=== PATIENT | male | born 1980 | race Two or more races ===

== ENCOUNTER 2018-03-20 03:16 | Emergency (ER) | payer OTHER ==
[2018-03-20 03:44] LABS: ADD MAN DIFF? NO
[2018-03-20 04:06] LABS: ALANINE AMINOTRANSFERASE 31 IU/L (13-69); ALBUMIN 4.2 g/dl (3.3-4.9); ALBUMIN/GLOBULIN RATIO 1.55; ALKALINE PHOSPHATASE 100 IU/L (42-121); ANION GAP 16 (5-13); ASPARTATE AMINO TRANSFERASE 29 IU/L (15-46); BILIRUBIN,INDIRECT 0.4 mg/dl (0-1.1); BILIRUBIN,TOTAL 0.4 mg/dl (0.2-1.3); BLOOD UREA NITROGEN 50 mg/dl (7-20); CALCIUM 9.3 mg/dl (8.4-10.2); CARBON DIOXIDE 23 mmol/L (21-31); CHLORIDE 100 mmol/L (97-110); CREATININE 11.42 mg/dl (0.61-1.24); Estimated GFR 5 mL/min (>60); GLUCOSE 101 mg/dl (70-220); POTASSIUM 4.2 mmol/L (3.5-5.1); SODIUM 139 mmol/L (135-144); TOTAL PROTEIN 6.9 g/dl (6.1-8.1)
[2018-03-20 04:09] LABS: BASOPHILS % 0.5 % (0.0-2.0); EOSINOPHILS # 0.2 10^3/ul (0.0-0.5); EOSINOPHILS % 3.8 % (0.0-7.0); HEMATOCRIT 31.3 % (42.0-52.0); HEMOGLOBIN 10.5 g/dl (14.0-18.0); LYMPHOCYTES # 1.7 10^3/ul (0.8-2.9); LYMPHOCYTES % 26.4 % (15.0-51.0); MEAN CORPUSCULAR HEMOGLOBIN 30.4 pg (29.0-33.0); MEAN CORPUSCULAR HGB CONC 33.5 g/dl (32.0-37.0); MEAN CORPUSCULAR VOLUME 90.7 fl (82.0-101.0); MEAN PLATELET VOLUME 9.6 fl (7.4-10.4); MONOCYTE # 0.4 10^3/ul (0.3-0.9); NEUTROPHILS % 63.1 % (39.0-77.0); PLATELET COUNT 145 10^3/UL (140-415); RED BLOOD COUNT 3.45 10^6/ul (4.70-6.10); RED CELL DISTRIBUTION WIDTH 17.1 % (11.5-14.5)
[2018-03-20 04:09] LABS: WHITE BLOOD COUNT 6.3 10^3/ul (4.8-10.8)
[2018-03-20 04:17] LABS: INR 0.93; PROTIME 12.5 Sec (11.9-14.9)
[2018-03-20 04:18] LABS: PARTIAL THROMBOPLASTIN TIME 28.6 Sec (23.0-35.0); TROPONIN-I 0.091 ng/ml (0.000-0.120)
[2018-03-20] MEDS: NITROGLYCERIN 2% 1 GM OINT PKT TD (04:22)
[2018-03-20 04:46] LABS: B-TYPE NATRIURETIC PEPTIDE 143000 PG/ML (0-125)
[2018-03-20 04:48] LABS: AADO2 Arterial 211.8 mmHg (7.0-24.0); Arterial Base Excess -3.2 mmol/L (-3.0-3); Arterial Blood Gas Oxygen Sat 97.2 mmHG (95.0-98.0); Arterial COHb 1.6 % (0.0-3.0); Arterial Fraction of Oxyhgb 95.6 % (93.0-99.0); Arterial HCO3 21.1 mmol/L (22.0-26.0); Arterial MetHb 0 % (0.0-1.5); Blood Gas IEPAP 15/5; Blood Gas PS 10; MODE MASK - BIPAP; Site LB
== END 2018-03-20 10:39 | disposition left against medical advice (07) ==
LOC: E/R 03:16
DX: R06.02 Shortness of breath (principal); I10 Essential (primary) hypertension; F17.210 Nicotine dependence, cigarettes, uncomplicated
CPT/HCPCS: 36415; 36600; 71045; 80053; 82803; 83605; 83880; 84484; 85025; 85610; 85730; 93005; 94660; 99285-25

== ENCOUNTER 2018-03-22 04:32 | Emergency (ER) | payer OTHER ==
[2018-03-22 05:27] LABS: ADD MAN DIFF? NO
[2018-03-22 05:35] LABS: WHITE BLOOD COUNT 6.1 10^3/ul (4.8-10.8)
[2018-03-22 05:35] LABS: BASOPHILS % 0.5 % (0.0-2.0); EOSINOPHILS # 0.2 10^3/ul (0.0-0.5); EOSINOPHILS % 3.8 % (0.0-7.0); HEMATOCRIT 30.7 % (42.0-52.0); HEMOGLOBIN 10.2 g/dl (14.0-18.0); LYMPHOCYTES # 1.2 10^3/ul (0.8-2.9); MEAN CORPUSCULAR HEMOGLOBIN 30.3 pg (29.0-33.0); MEAN CORPUSCULAR HGB CONC 33.2 g/dl (32.0-37.0); MEAN CORPUSCULAR VOLUME 91.1 fl (82.0-101.0); MEAN PLATELET VOLUME 9.7 fl (7.4-10.4); MONOCYTE # 0.4 10^3/ul (0.3-0.9); MONOCYTES % 6.3 % (0.0-11.0); NEUTROPHIL # 4.2 10^3/ul (1.6-7.5); NEUTROPHILS % 69.1 % (39.0-77.0); PLATELET COUNT 134 10^3/UL (140-415); RED BLOOD COUNT 3.37 10^6/ul (4.70-6.10); RED CELL DISTRIBUTION WIDTH 17.5 % (11.5-14.5)
[2018-03-22 05:51] LABS: INR 0.93; PROTIME 12.6 Sec (11.9-14.9)
[2018-03-22] MEDS: LABETALOL HCL 20MG INJ IV (06:08)
[2018-03-22 06:13] LABS: ANION GAP 17 (5-13); BLOOD UREA NITROGEN 53 mg/dl (7-20); CALCIUM 9.4 mg/dl (8.4-10.2); CARBON DIOXIDE 25 mmol/L (21-31); CHLORIDE 100 mmol/L (97-110); CREATININE 11.28 mg/dl (0.61-1.24); Estimated GFR 5 mL/min (>60); GLUCOSE 99 mg/dl (70-220); SODIUM 142 mmol/L (135-144)
[2018-03-22 06:24] LABS: TROPONIN-I 0.079 ng/ml (0.000-0.120)
[2018-03-22 07:52] LABS: B-TYPE NATRIURETIC PEPTIDE 162000 PG/ML (0-125)
== END 2018-03-22 07:46 | disposition left against medical advice (07) ==
LOC: E/R 04:32
DX: J81.1 Chronic pulmonary edema (principal); I12.0 Hypertensive chronic kidney disease with stage 5 chronic kidney disease or end stage renal disease; N18.6 End stage renal disease; R00.0 Tachycardia, unspecified; R06.82 Tachypnea, not elsewhere classified; D64.9 Anemia, unspecified; F17.210 Nicotine dependence, cigarettes, uncomplicated; Z99.2 Dependence on renal dialysis
CPT/HCPCS: 36415; 71045; 80048; 83880; 84484; 85025; 85610; 93005; 96374; 99285-25

== ENCOUNTER 2018-05-10 19:55 | Inpatient (IN) | payer OTHER ==
[2018-05-10 21:20] LABS: ADD MAN DIFF? NO
[2018-05-10 21:23] LABS: BASOPHILS % 0.3 % (0.0-2.0); EOSINOPHILS # 0.1 10^3/ul (0.0-0.5); EOSINOPHILS % 1.9 % (0.0-7.0); HEMATOCRIT 29.9 % (42.0-52.0); HEMOGLOBIN 9.6 g/dl (14.0-18.0); LYMPHOCYTES # 1.4 10^3/ul (0.8-2.9); MEAN CORPUSCULAR HEMOGLOBIN 31.3 pg (29.0-33.0); MEAN CORPUSCULAR HGB CONC 32.1 g/dl (32.0-37.0); MEAN CORPUSCULAR VOLUME 97.4 fl (82.0-101.0); MEAN PLATELET VOLUME 10.3 fl (7.4-10.4); MONOCYTE # 0.4 10^3/ul (0.3-0.9); MONOCYTES % 6.1 % (0.0-11.0); NEUTROPHIL # 4.3 10^3/ul (1.6-7.5); NEUTROPHILS % 68.4 % (39.0-77.0); PLATELET COUNT 198 10^3/UL (140-415); RED BLOOD COUNT 3.07 10^6/ul (4.70-6.10); RED CELL DISTRIBUTION WIDTH 15.8 % (11.5-14.5)
[2018-05-10 21:23] LABS: WHITE BLOOD COUNT 6.2 10^3/ul (4.8-10.8)
[2018-05-10 21:29] LABS: ALANINE AMINOTRANSFERASE 47 IU/L (13-69); ALBUMIN 3.9 g/dl (3.3-4.9); ALBUMIN/GLOBULIN RATIO 1.44; ALKALINE PHOSPHATASE 82 IU/L (42-121); ANION GAP 13 (5-13); ASPARTATE AMINO TRANSFERASE 29 IU/L (15-46); BILIRUBIN,INDIRECT 0.2 mg/dl (0-1.1); BILIRUBIN,TOTAL 0.2 mg/dl (0.2-1.3); BLOOD UREA NITROGEN 57 mg/dl (7-20); CALCIUM 9.4 mg/dl (8.4-10.2); CARBON DIOXIDE 23 mmol/L (21-31); CHLORIDE 104 mmol/L (97-110); CREATININE 10.97 mg/dl (0.61-1.24); Estimated GFR 5 mL/min (>60); GLUCOSE 102 mg/dl (70-220); LIPASE 109 U/L (23-300); POTASSIUM 3.5 mmol/L (3.5-5.1); SODIUM 140 mmol/L (135-144); TOTAL PROTEIN 6.6 g/dl (6.1-8.1)
[2018-05-10] MEDS ORDERED: ENALAPRILAT 1.25 MG INJ IV (21:30)
[2018-05-10] MEDS: ENALAPRILAT 2.5 MG INJ IV (21:50)
[2018-05-10 22:05] LABS: TROPONIN-I 0.154 ng/ml (0.000-0.120)
[2018-05-10] MEDS: ASPIRIN 81 MG TAB PO (22:48)
[2018-05-11] MEDS ORDERED: ACETAMINOPHEN 325 MG TAB PO
[2018-05-11] MEDS: SEVELAMER CARBONATE 0.8 GM PKT PO ×3 (08:00→17:38)
[2018-05-11] MEDS ORDERED: LOSARTAN 25 MG TAB PO (09:00)
[2018-05-11] MEDS ORDERED: AMLODIPINE 5 MG TAB PO (09:00)
[2018-05-11 09:48] LABS: CREATINE KINASE 106 IU/L (23-200)
[2018-05-11 10:01] LABS: CK INDEX 2.9; TROPONIN-I 0.118 ng/ml (0.000-0.120)
[2018-05-11 10:02] LABS: CK-MB 3.06 ng/ml (0.0-2.4)
[2018-05-11 10:20] LABS: HEPATITIS B SURFACE ANTIGEN NEGATIVE (NEGATIVE)
[2018-05-11] MEDS: HEPARIN 1000 UNITS/ML 10 ML INJ CATHETER (12:18)
[2018-05-11] MEDS: FAMOTIDINE 20 MG TAB PO ×2 (13:05→21:00)
[2018-05-11] MEDS: DIGOXIN 500 MCG INJ IV (13:08)
[2018-05-11] MEDS: HEPARIN 5,000 UNIT/1 ML VIAL SC ×2 (13:19→21:40)
[2018-05-11] MEDS: EPOETIN 10000 UNITS/1 ML INJ (ESRD) SC (17:37)
[2018-05-11] MEDS: LOSARTAN 25 MG TAB PO (21:35)
[2018-05-12 06:17] LABS: ADD MAN DIFF? NO
[2018-05-12 06:19] LABS: BASOPHILS % 0.5 % (0.0-2.0); EOSINOPHILS # 0.2 10^3/ul (0.0-0.5); EOSINOPHILS % 3.8 % (0.0-7.0); HEMATOCRIT 26.6 % (42.0-52.0); HEMOGLOBIN 8.6 g/dl (14.0-18.0); LYMPHOCYTES # 0.9 10^3/ul (0.8-2.9); LYMPHOCYTES % 22.6 % (15.0-51.0); MEAN CORPUSCULAR HEMOGLOBIN 31.5 pg (29.0-33.0); MEAN CORPUSCULAR HGB CONC 32.3 g/dl (32.0-37.0); MEAN CORPUSCULAR VOLUME 97.4 fl (82.0-101.0); MEAN PLATELET VOLUME 10.4 fl (7.4-10.4); MONOCYTE # 0.4 10^3/ul (0.3-0.9); MONOCYTES % 8.8 % (0.0-11.0); NEUTROPHIL # 2.6 10^3/ul (1.6-7.5); PLATELET COUNT 143 10^3/UL (140-415); RED BLOOD COUNT 2.73 10^6/ul (4.70-6.10); RED CELL DISTRIBUTION WIDTH 15.5 % (11.5-14.5)
[2018-05-12 06:48] LABS: ANION GAP 14 (5-13); BLOOD UREA NITROGEN 53 mg/dl (7-20); CALCIUM 8.7 mg/dl (8.4-10.2); CARBON DIOXIDE 24 mmol/L (21-31); CHLORIDE 100 mmol/L (97-110); CREATININE 9.62 mg/dl (0.61-1.24); Estimated GFR 6 mL/min (>60); GLUCOSE 113 mg/dl (70-220); MAGNESIUM 2.2 mg/dl (1.7-2.5); PHOSPHORUS 7.6 mg/dl (2.5-4.9); POTASSIUM 3.3 mmol/L (3.5-5.1); SODIUM 138 mmol/L (135-144)
[2018-05-12] MEDS: SEVELAMER CARBONATE 0.8 GM PKT PO ×2 (08:00→12:00)
[2018-05-12] MEDS: HEPARIN 1000 UNITS/ML 10 ML INJ CATHETER (11:49)
[2018-05-12] MEDS: HEPARIN 5,000 UNIT/1 ML VIAL SC (12:30)
[2018-05-12] MEDS: FAMOTIDINE 20 MG TAB PO (12:30)
[2018-05-12] MEDS: ASPIRIN (EC) 81 MG TAB PO (12:30)
[2018-05-12] MEDS: LOSARTAN 25 MG TAB PO (12:30)
== END 2018-05-12 12:43 | disposition home health service (06) | DRG 291 ==
LOC: E/R 19:55 → 6WM 23:51
PROC: 5A09357 Assistance with Respiratory Ventilation, Less than 24 Consecutive Hours, Continuous Positive Airway Pressure (ICD-10-PCS; 2018-05-10)
PROC: 5A1D70Z Performance of Urinary Filtration, Intermittent, Less than 6 Hours Per Day (ICD-10-PCS; principal; 2018-05-11)
DX: I13.2 Hypertensive heart and chronic kidney disease with heart failure and with stage 5 chronic kidney disease, or end stage renal disease (principal); J96.01 Acute respiratory failure with hypoxia; N18.6 End stage renal disease; I50.23 Acute on chronic systolic (congestive) heart failure; J96.02 Acute respiratory failure with hypercapnia; I42.9 Cardiomyopathy, unspecified; D63.1 Anemia in chronic kidney disease; Z99.2 Dependence on renal dialysis; F17.210 Nicotine dependence, cigarettes, uncomplicated
CPT/HCPCS: 36415; 71045; 76775; 80048; 80053; 82550; 82553; 83690; 83735; 84100; 84484; 85025; 87340; 90935; 93306; 94660; 99291-25

== ENCOUNTER 2018-05-21 17:58 | Inpatient (IN) | payer OTHER ==
[2018-05-21 19:56] LABS: ADD MAN DIFF? NO
[2018-05-21 20:15] LABS: WHITE BLOOD COUNT 5.9 10^3/ul (4.8-10.8)
[2018-05-21 20:15] LABS: BASOPHILS % 0.3 % (0.0-2.0); EOSINOPHILS # 0.1 10^3/ul (0.0-0.5); HEMATOCRIT 27.8 % (42.0-52.0); HEMOGLOBIN 8.9 g/dl (14.0-18.0); LYMPHOCYTES # 1.2 10^3/ul (0.8-2.9); LYMPHOCYTES % 20.7 % (15.0-51.0); MEAN CORPUSCULAR HEMOGLOBIN 31.1 pg (29.0-33.0); MEAN CORPUSCULAR VOLUME 97.2 fl (82.0-101.0); MEAN PLATELET VOLUME 10.4 fl (7.4-10.4); MONOCYTE # 0.2 10^3/ul (0.3-0.9); MONOCYTES % 3.6 % (0.0-11.0); NEUTROPHIL # 4.3 10^3/ul (1.6-7.5); NEUTROPHILS % 72.9 % (39.0-77.0); PLATELET COUNT 179 10^3/UL (140-415); RED BLOOD COUNT 2.86 10^6/ul (4.70-6.10); RED CELL DISTRIBUTION WIDTH 14.3 % (11.5-14.5)
[2018-05-21 20:21] LABS: INR 1.01; PROTIME 13.4 Sec (11.9-14.9)
[2018-05-21 20:22] LABS: PARTIAL THROMBOPLASTIN TIME 28.6 Sec (23.0-35.0)
[2018-05-21] MEDS: NITROGLYCERIN (SL) 0.4 MG TAB SL (20:25)
[2018-05-21 20:29] LABS: CHLORIDE 95 mmol/L (97-110); POTASSIUM 4.1 mmol/L (3.5-5.1); SODIUM 139 mmol/L (135-144)
[2018-05-21 20:30] LABS: ANION GAP 19 (5-13); BLOOD UREA NITROGEN 68 mg/dl (7-20); CALCIUM 9.4 mg/dl (8.4-10.2); CARBON DIOXIDE 25 mmol/L (21-31); CREATININE 10.81 mg/dl (0.61-1.24); Estimated GFR 5 mL/min (>60); GLUCOSE 99 mg/dl (70-220)
[2018-05-21 20:45] LABS: TROPONIN-I 0.127 ng/ml (0.000-0.120)
[2018-05-21] MEDS: ASPIRIN 81 MG TAB PO (20:50)
[2018-05-21] MEDS ORDERED: ACETAMINOPHEN 325 MG TAB PO ×2 (21:00→22:00)
[2018-05-21] MEDS ORDERED: ONDANSETRON 4 MG INJ IV ×2 (21:00→22:00)
[2018-05-21] MEDS ORDERED: hydrALAzine 20 MG INJ (21:37)
[2018-05-21] MEDS: hydrALAzine 20 MG INJ IV (21:51)
[2018-05-21] MEDS ORDERED: ZOLPIDEM 5 MG TAB PO (22:00)
[2018-05-21] MEDS ORDERED: NACL 0.9% 3 ML SYG IV (22:00)
[2018-05-21] MEDS ORDERED: GUAIFENESIN/DM 5ML CUP PO (23:00)
[2018-05-21] MEDS: HEPARIN 5,000 UNIT/1 ML VIAL SC (23:03)
[2018-05-21] MEDS: NITROGLYCERIN 2% 1 GM OINT PKT TD (23:15)
[2018-05-22 03:01] LABS: ADD MAN DIFF? NO
[2018-05-22 03:05] LABS: BASOPHILS % 0.4 % (0.0-2.0); EOSINOPHILS # 0.1 10^3/ul (0.0-0.5); EOSINOPHILS % 1.2 % (0.0-7.0); HEMATOCRIT 25.6 % (42.0-52.0); HEMOGLOBIN 8.3 g/dl (14.0-18.0); LYMPHOCYTES # 0.8 10^3/ul (0.8-2.9); MEAN CORPUSCULAR HGB CONC 32.4 g/dl (32.0-37.0); MEAN CORPUSCULAR VOLUME 95.5 fl (82.0-101.0); MEAN PLATELET VOLUME 10.5 fl (7.4-10.4); MONOCYTE # 0.2 10^3/ul (0.3-0.9); MONOCYTES % 4.5 % (0.0-11.0); NEUTROPHILS % 77.5 % (39.0-77.0); PLATELET COUNT 162 10^3/UL (140-415); RED BLOOD COUNT 2.68 10^6/ul (4.70-6.10); RED CELL DISTRIBUTION WIDTH 14.6 % (11.5-14.5)
[2018-05-22 03:05] LABS: WHITE BLOOD COUNT 5.1 10^3/ul (4.8-10.8)
[2018-05-22 03:40] LABS: ALANINE AMINOTRANSFERASE 36 IU/L (13-69); ALBUMIN 3.5 g/dl (3.3-4.9); ALKALINE PHOSPHATASE 83 IU/L (42-121); ANION GAP 14 (5-13); ASPARTATE AMINO TRANSFERASE 24 IU/L (15-46); BILIRUBIN,INDIRECT 0.4 mg/dl (0-1.1); BILIRUBIN,TOTAL 0.4 mg/dl (0.2-1.3); BLOOD UREA NITROGEN 73 mg/dl (7-20); CALCIUM 9.3 mg/dl (8.4-10.2); CARBON DIOXIDE 23 mmol/L (21-31); CHLORIDE 102 mmol/L (97-110); CREATINE KINASE 163 IU/L (23-200); CREATININE 11.18 mg/dl (0.61-1.24); Estimated GFR 5 mL/min (>60); GLUCOSE 102 mg/dl (70-220); MAGNESIUM 2.5 mg/dl (1.7-2.5); PHOSPHORUS 5.9 mg/dl (2.5-4.9); POTASSIUM 4.2 mmol/L (3.5-5.1); SODIUM 139 mmol/L (135-144)
[2018-05-22 03:51] LABS: CK INDEX 2.6
[2018-05-22 03:52] LABS: CK-MB 4.17 ng/ml (0.0-2.4)
[2018-05-22 04:12] LABS: HEPATITIS B SURFACE ANTIGEN NEGATIVE (NEGATIVE)
[2018-05-22] MEDS: NITROGLYCERIN 2% 1 GM OINT PKT TD ×4 (05:32→23:13)
[2018-05-22] MEDS: HEPARIN 5,000 UNIT/1 ML VIAL SC ×3 (05:39→21:52)
[2018-05-22 07:51] LABS: TROPONIN-I 0.104 ng/ml (0.000-0.120)
[2018-05-22] MEDS: SEVELAMER CARBONATE 0.8 GM PKT PO ×3 (08:18→17:55)
[2018-05-22] MEDS: EPOETIN 10000 UNITS/1 ML INJ (ESRD) SC (11:17)
[2018-05-22] MEDS: LISINOPRIL 5 MG TAB PO (11:19)
[2018-05-22 12:06] LABS: CREATINE KINASE 174 IU/L (23-200)
[2018-05-22 12:16] LABS: CK INDEX 2.1; TROPONIN-I 0.104 ng/ml (0.000-0.120)
[2018-05-22 12:33] LABS: CK-MB 3.62 ng/ml (0.0-2.4)
[2018-05-22] MEDS: ALTEPLASE (CATHFLO) 2 MG INJ CATHETER (15:22)
[2018-05-23] MEDS: NITROGLYCERIN 2% 1 GM OINT PKT TD ×3 (05:52→17:40)
[2018-05-23 05:56] LABS: ADD MAN DIFF? NO
[2018-05-23] MEDS: HEPARIN 5,000 UNIT/1 ML VIAL SC ×3 (06:07→21:04)
[2018-05-23 06:08] LABS: BASOPHILS % 0.5 % (0.0-2.0); EOSINOPHILS # 0.1 10^3/ul (0.0-0.5); EOSINOPHILS % 2.6 % (0.0-7.0); HEMATOCRIT 24.7 % (42.0-52.0); HEMOGLOBIN 8.1 g/dl (14.0-18.0); LYMPHOCYTES # 0.8 10^3/ul (0.8-2.9); LYMPHOCYTES % 19.2 % (15.0-51.0); MEAN CORPUSCULAR HEMOGLOBIN 31.3 pg (29.0-33.0); MEAN CORPUSCULAR HGB CONC 32.8 g/dl (32.0-37.0); MEAN CORPUSCULAR VOLUME 95.4 fl (82.0-101.0); MONOCYTE # 0.3 10^3/ul (0.3-0.9); MONOCYTES % 7.3 % (0.0-11.0); NEUTROPHILS % 70.2 % (39.0-77.0); PLATELET COUNT 135 10^3/UL (140-415); RED BLOOD COUNT 2.59 10^6/ul (4.70-6.10); RED CELL DISTRIBUTION WIDTH 14.5 % (11.5-14.5)
[2018-05-23 06:08] LABS: WHITE BLOOD COUNT 4.3 10^3/ul (4.8-10.8)
[2018-05-23 06:43] LABS: ANION GAP 18 (5-13); BLOOD UREA NITROGEN 58 mg/dl (7-20); CALCIUM 8.8 mg/dl (8.4-10.2); CARBON DIOXIDE 27 mmol/L (21-31); CHLORIDE 94 mmol/L (97-110); CREATININE 9.66 mg/dl (0.61-1.24); Estimated GFR 6 mL/min (>60); GLUCOSE 91 mg/dl (70-220); MAGNESIUM 2.2 mg/dl (1.7-2.5); POTASSIUM 3.8 mmol/L (3.5-5.1); SODIUM 139 mmol/L (135-144)
[2018-05-23] MEDS: SEVELAMER CARBONATE 0.8 GM PKT PO ×3 (07:55→17:39)
[2018-05-23] MEDS: LISINOPRIL 5 MG TAB PO (09:00)
[2018-05-23] MEDS: ASPIRIN (EC) 81 MG TAB PO (09:00)
[2018-05-23] MEDS: REGADENOSON 0.4 MG/5 ML SYG (09:08)
[2018-05-23] MEDS: HEPARIN 1000 UNITS/ML 10 ML INJ CATHETER (16:16)
[2018-05-24] MEDS: NITROGLYCERIN 2% 1 GM OINT PKT TD ×2 (00:16→06:00)
[2018-05-24] MEDS: HEPARIN 5,000 UNIT/1 ML VIAL SC ×2 (06:00→14:00)
[2018-05-24] MEDS ORDERED: EPOETIN 10000 UNITS/1 ML INJ (ESRD) SC (08:30)
[2018-05-24] MEDS: ASPIRIN (EC) 81 MG TAB PO (08:40)
[2018-05-24] MEDS: SEVELAMER CARBONATE 800 MG TABLET PO ×3 (08:40→17:55)
[2018-05-24] MEDS: LISINOPRIL 5 MG TAB PO (08:41)
[2018-05-24] MEDS: HEPARIN 1000 UNITS/ML 10 ML INJ CATHETER (18:57)
[2018-05-24] MEDS: VANCOMYCIN 1 GM (PMX) 250 ML IVPB (19:04)
[2018-05-24] MEDS: CEPHALEXIN 500 MG CAP PO (19:56)
[2018-05-24] MEDS: EPOETIN 10000 UNITS/1 ML INJ (ESRD) SC (19:57)
== END 2018-05-24 20:05 | disposition home or self-care (01) | DRG 291 ==
LOC: E/R 17:58 → TEL 20:32
PROC: 5A1D70Z Performance of Urinary Filtration, Intermittent, Less than 6 Hours Per Day (ICD-10-PCS; 2018-05-21)
PROC: 5A1D70Z Performance of Urinary Filtration, Intermittent, Less than 6 Hours Per Day (ICD-10-PCS; 2018-05-23)
PROC: 5A1D70Z Performance of Urinary Filtration, Intermittent, Less than 6 Hours Per Day (ICD-10-PCS; principal; 2018-05-24)
DX: I13.2 Hypertensive heart and chronic kidney disease with heart failure and with stage 5 chronic kidney disease, or end stage renal disease (principal); N18.6 End stage renal disease; I50.23 Acute on chronic systolic (congestive) heart failure; J96.01 Acute respiratory failure with hypoxia; T82.7XXA Infection and inflammatory reaction due to other cardiac and vascular devices, implants and grafts, initial encounter; I16.1 Hypertensive emergency; F17.210 Nicotine dependence, cigarettes, uncomplicated; D64.9 Anemia, unspecified; I42.9 Cardiomyopathy, unspecified; Z79.82 Long term (current) use of aspirin; Z99.2 Dependence on renal dialysis; Z91.11 Patient's noncompliance with dietary regimen; Z91.14 Patient's other noncompliance with medication regimen; Y84.8 Other medical procedures as the cause of abnormal reaction of the patient, or of later complication, without mention of misadventure at the time of the procedure; Y92.230 Patient room in hospital as the place of occurrence of the external cause
CPT/HCPCS: 71045; 71046; 78452; 80048; 80053; 82550; 82553; 82962; 83036; 83735; 84100; 84443; 84484; 85025; 85610; 85730; 87340; 90935; 93005; 93017; 99285-25

== ENCOUNTER 2018-05-30 21:23 | Emergency (ER) | payer SELFPAY, OTHER | END 2018-05-31 00:19 | disposition left against medical advice (07) | LOC: E/R 21:23 | DX: Z53.21 Procedure and treatment not carried out due to patient leaving prior to being seen by health care provider (principal) | CPT/HCPCS: 93005 ==

== ENCOUNTER 2018-06-15 01:40 | Inpatient (IN) | payer OTHER ==
[2018-06-15 03:27] LABS: ADD MAN DIFF? NO
[2018-06-15 03:49] LABS: ALANINE AMINOTRANSFERASE 29 IU/L (13-69); ALBUMIN/GLOBULIN RATIO 1.33; ALKALINE PHOSPHATASE 96 IU/L (42-121); ANION GAP 19 (5-13); ASPARTATE AMINO TRANSFERASE 31 IU/L (15-46); BILIRUBIN,INDIRECT 0.3 mg/dl (0-1.1); BILIRUBIN,TOTAL 0.3 mg/dl (0.2-1.3); BLOOD UREA NITROGEN 61 mg/dl (7-20); CALCIUM 9.1 mg/dl (8.4-10.2); CARBON DIOXIDE 19 mmol/L (21-31); CHLORIDE 100 mmol/L (97-110); CREATININE 12.28 mg/dl (0.61-1.24); Estimated GFR 5 mL/min (>60); GLUCOSE 120 mg/dl (70-220); POTASSIUM 4.2 mmol/L (3.5-5.1); SODIUM 138 mmol/L (135-144)
[2018-06-15 04:01] LABS: TROPONIN-I 0.117 ng/ml (0.000-0.120)
[2018-06-15 04:11] LABS: WHITE BLOOD COUNT 7.9 10^3/ul (4.8-10.8)
[2018-06-15 04:11] LABS: BASOPHILS % 0.4 % (0.0-2.0); EOSINOPHILS # 0.1 10^3/ul (0.0-0.5); HEMOGLOBIN 9.8 g/dl (14.0-18.0); LYMPHOCYTES % 12.9 % (15.0-51.0); MEAN CORPUSCULAR HEMOGLOBIN 31.3 pg (29.0-33.0); MEAN CORPUSCULAR HGB CONC 32.7 g/dl (32.0-37.0); MEAN CORPUSCULAR VOLUME 95.8 fl (82.0-101.0); MEAN PLATELET VOLUME 9.9 fl (7.4-10.4); MONOCYTE # 0.4 10^3/ul (0.3-0.9); MONOCYTES % 4.5 % (0.0-11.0); NEUTROPHIL # 6.4 10^3/ul (1.6-7.5); NEUTROPHILS % 80.9 % (39.0-77.0); PLATELET COUNT 189 10^3/UL (140-415); RED BLOOD COUNT 3.13 10^6/ul (4.70-6.10); RED CELL DISTRIBUTION WIDTH 15.7 % (11.5-14.5)
[2018-06-15] MEDS: hydrALAzine 20 MG INJ IV (04:22)
[2018-06-15] MEDS: NICARDipine HCL 30 MG CAPSULE PO (04:22)
[2018-06-15] MEDS ORDERED: ACETAMINOPHEN 325 MG TAB PO (06:00)
[2018-06-15] MEDS ORDERED: ONDANSETRON 4 MG INJ IV (06:00)
[2018-06-15] MEDS: NIFEdipine (XL) 60 MG TAB PO ×2 (10:30→11:51)
[2018-06-15] MEDS: LOSARTAN 50 MG TAB PO ×2 (10:30→14:37)
[2018-06-15] MEDS: SEVELAMER CARBONATE 0.8 GM PKT PO (11:50)
[2018-06-15 12:17] LABS: HEPATITIS B SURFACE ANTIGEN NEGATIVE (NEGATIVE)
[2018-06-15] MEDS: HEPARIN 1000 UNITS/ML 10 ML INJ CATHETER (17:59)
[2018-06-15] MEDS: SEVELAMER CARBONATE 800 MG TABLET PO (18:00)
[2018-06-16] MEDS: SEVELAMER CARBONATE 800 MG TABLET PO ×3 (08:49→17:49)
[2018-06-16] MEDS: ASPIRIN (EC) 81 MG TAB PO (08:49)
[2018-06-16] MEDS: LOSARTAN 50 MG TAB PO ×2 (08:51→17:49)
[2018-06-16] MEDS: NIFEdipine (XL) 60 MG TAB PO ×3 (08:51→20:01)
[2018-06-16] MEDS: HEPARIN 1000 UNITS/ML 10 ML INJ CATHETER (17:36)
[2018-06-16] MEDS: MINOXIDIL 2.5 MG TAB PO (22:44)
[2018-06-17] MEDS: NIFEdipine (XL) 60 MG TAB PO (08:06)
[2018-06-17] MEDS: SEVELAMER CARBONATE 800 MG TABLET PO (08:06)
[2018-06-17] MEDS: LOSARTAN 50 MG TAB PO (08:07)
[2018-06-17] MEDS: ASPIRIN (EC) 81 MG TAB PO (08:07)
== END 2018-06-17 10:35 | disposition home health service (06) | DRG 291 ==
LOC: E/R 01:40 → TEL 05:39
PROC: 5A1D70Z Performance of Urinary Filtration, Intermittent, Less than 6 Hours Per Day (ICD-10-PCS; principal; 2018-06-15)
DX: I13.2 Hypertensive heart and chronic kidney disease with heart failure and with stage 5 chronic kidney disease, or end stage renal disease (principal); N18.6 End stage renal disease; I50.9 Heart failure, unspecified; Z99.2 Dependence on renal dialysis; D64.9 Anemia, unspecified; Z91.19 Patient's noncompliance with other medical treatment and regimen
CPT/HCPCS: 36415; 71045; 80053; 84484; 85025; 87081; 87340; 90935; 93005; 96374; 99285-25; G0378

== ENCOUNTER 2018-07-18 07:15 | Inpatient (IN) | payer OTHER ==
[2018-07-18 07:50] LABS: ADD MAN DIFF? NO
[2018-07-18 07:53] LABS: BASOPHILS % 0.4 % (0.0-2.0); EOSINOPHILS # 0.1 10^3/ul (0.0-0.5); EOSINOPHILS % 2.3 % (0.0-7.0); HEMATOCRIT 30.1 % (42.0-52.0); LYMPHOCYTES # 0.9 10^3/ul (0.8-2.9); LYMPHOCYTES % 18.8 % (15.0-51.0); MEAN CORPUSCULAR HEMOGLOBIN 31.9 pg (29.0-33.0); MEAN CORPUSCULAR HGB CONC 33.2 g/dl (32.0-37.0); MEAN CORPUSCULAR VOLUME 96.2 fl (82.0-101.0); MEAN PLATELET VOLUME 10.3 fl (7.4-10.4); MONOCYTE # 0.4 10^3/ul (0.3-0.9); MONOCYTES % 7.9 % (0.0-11.0); NEUTROPHIL # 3.3 10^3/ul (1.6-7.5); NEUTROPHILS % 70.2 % (39.0-77.0); PLATELET COUNT 130 10^3/UL (140-415); RED BLOOD COUNT 3.13 10^6/ul (4.70-6.10)
[2018-07-18 07:53] LABS: WHITE BLOOD COUNT 4.7 10^3/ul (4.8-10.8)
[2018-07-18] MEDS: NITROGLYCERIN 50 MG/D5W (PMX) 250 ML IV (07:59)
[2018-07-18 08:09] LABS: ALANINE AMINOTRANSFERASE 29 IU/L (13-69); ALBUMIN 4.1 g/dl (3.3-4.9); ALBUMIN/GLOBULIN RATIO 1.36; ALKALINE PHOSPHATASE 89 IU/L (42-121); ANION GAP 17 (5-13); ASPARTATE AMINO TRANSFERASE 19 IU/L (15-46); BILIRUBIN,INDIRECT 0.4 mg/dl (0-1.1); BILIRUBIN,TOTAL 0.4 mg/dl (0.2-1.3); BLOOD UREA NITROGEN 71 mg/dl (7-20); CALCIUM 9.4 mg/dl (8.4-10.2); CARBON DIOXIDE 23 mmol/L (21-31); CHLORIDE 101 mmol/L (97-110); CREATININE 12.97 mg/dl (0.61-1.24); Estimated GFR 4 mL/min (>60); GLUCOSE 105 mg/dl (70-220); SODIUM 141 mmol/L (135-144); TOTAL PROTEIN 7.1 g/dl (6.1-8.1)
[2018-07-18 08:12] LABS: INR 1.03; PROTIME 13.6 Sec (11.9-14.9); PT RATIO 1.1
[2018-07-18 08:15] LABS: LACTIC ACID 0.9 mmol/L (0.5-2.0)
[2018-07-18 08:21] LABS: TROPONIN-I 0.091 ng/ml (0.000-0.120)
[2018-07-18 09:53] LABS: B-TYPE NATRIURETIC PEPTIDE > 175000 PG/ML (0-125)
[2018-07-18] MEDS: SEVELAMER CARBONATE 0.8 GM PKT PO ×3 (11:38→18:32)
[2018-07-18] MEDS: LOSARTAN 50 MG TAB PO (12:09)
[2018-07-18] MEDS: ASPIRIN (EC) 81 MG TAB PO (12:09)
[2018-07-18] MEDS: NIFEdipine (XL) 60 MG TAB PO (12:09)
[2018-07-18 12:47] LABS: HEPATITIS B SURFACE ANTIGEN NEGATIVE (NEGATIVE)
[2018-07-18 13:05] LABS: HEPATITIS B SURFACE ANTIBODY POSITIVE (NEGATIVE)
[2018-07-18] MEDS ORDERED: ACETAMINOPHEN 325 MG TAB PO ×2 (13:30)
[2018-07-18] MEDS ORDERED: hydrALAzine 20 MG INJ IV (15:30)
[2018-07-18] MEDS: ALTEPLASE (CATHFLO) 2 MG INJ CATHETER (18:34)
[2018-07-19 05:15] LABS: ADD MAN DIFF? NO; BASOPHILS % 0.3 % (0.0-2.0); EOSINOPHILS # 0.1 10^3/ul (0.0-0.5); EOSINOPHILS % 3.3 % (0.0-7.0); HEMOGLOBIN 9.3 g/dl (14.0-18.0); LYMPHOCYTES % 24.2 % (15.0-51.0); MEAN CORPUSCULAR HEMOGLOBIN 30.8 pg (29.0-33.0); MEAN CORPUSCULAR HGB CONC 33.2 g/dl (32.0-37.0); MEAN CORPUSCULAR VOLUME 92.7 fl (82.0-101.0); MEAN PLATELET VOLUME 9.7 fl (7.4-10.4); MONOCYTE # 0.5 10^3/ul (0.3-0.9); MONOCYTES % 11.8 % (0.0-11.0); NEUTROPHIL # 2.4 10^3/ul (1.6-7.5); NEUTROPHILS % 60.1 % (39.0-77.0); PLATELET COUNT 131 10^3/UL (140-415); RED BLOOD COUNT 3.02 10^6/ul (4.70-6.10); RED CELL DISTRIBUTION WIDTH 16.7 % (11.5-14.5)
[2018-07-19 05:37] LABS: ANION GAP 12 (5-13); BLOOD UREA NITROGEN 50 mg/dl (7-20); CALCIUM 9.1 mg/dl (8.4-10.2); CARBON DIOXIDE 26 mmol/L (21-31); CHLORIDE 101 mmol/L (97-110); CREATININE 10.08 mg/dl (0.61-1.24); Estimated GFR 6 mL/min (>60); GLUCOSE 92 mg/dl (70-220); PHOSPHORUS 6.8 mg/dl (2.5-4.9); POTASSIUM 3.7 mmol/L (3.5-5.1); SODIUM 139 mmol/L (135-144)
[2018-07-19] MEDS: NIFEdipine (XL) 60 MG TAB PO (08:26)
[2018-07-19] MEDS: ASPIRIN (EC) 81 MG TAB PO (08:26)
[2018-07-19] MEDS: LOSARTAN 50 MG TAB PO (08:27)
[2018-07-19] MEDS ORDERED: NIFEdipine (XL) 60 MG TAB PO (09:00)
[2018-07-19] MEDS ORDERED: ASPIRIN (EC) 81 MG TAB PO (09:00)
[2018-07-19] MEDS ORDERED: LOSARTAN 50 MG TAB PO (09:00)
[2018-07-19] MEDS: SEVELAMER CARBONATE 800 MG TABLET PO (17:27)
[2018-07-19] MEDS: HEPARIN 1000 UNITS/ML 10 ML INJ CATHETER (21:43)
[2018-07-20] MEDS: SEVELAMER CARBONATE 800 MG TABLET PO ×2 (08:26→12:45)
[2018-07-20] MEDS: ASPIRIN (EC) 81 MG TAB PO (08:26)
[2018-07-20] MEDS: NIFEdipine (XL) 60 MG TAB PO (08:27)
[2018-07-20] MEDS: LOSARTAN 50 MG TAB PO (08:28)
== END 2018-07-20 14:30 | disposition home or self-care (01) | DRG 291 ==
LOC: E/R 07:15 → TEL 07-19 23:36 → 6WM 07-19 23:46 → ICU 08:54
PROC: 5A1D70Z Performance of Urinary Filtration, Intermittent, Less than 6 Hours Per Day (ICD-10-PCS; principal; 2018-07-18)
DX: I13.0 Hypertensive heart and chronic kidney disease with heart failure and stage 1 through stage 4 chronic kidney disease, or unspecified chronic kidney disease (principal); J96.01 Acute respiratory failure with hypoxia; I50.23 Acute on chronic systolic (congestive) heart failure; N18.6 End stage renal disease; E83.9 Disorder of mineral metabolism, unspecified; I42.9 Cardiomyopathy, unspecified; D69.6 Thrombocytopenia, unspecified; I27.20 Pulmonary hypertension, unspecified; E87.70 Fluid overload, unspecified; I16.0 Hypertensive urgency; Z99.2 Dependence on renal dialysis; D64.9 Anemia, unspecified; D72.819 Decreased white blood cell count, unspecified; Z91.11 Patient's noncompliance with dietary regimen; Z91.14 Patient's other noncompliance with medication regimen
CPT/HCPCS: 71045; 80048; 80053; 83605; 83735; 83880; 84100; 84484; 85025; 85610; 86706; 87040-91; 87081; 87340; 90935; 93005; 93306; 94660; 96374; 99285-25

== ENCOUNTER 2018-08-15 23:25 | Inpatient (IN) | payer OTHER ==
[2018-08-16] MEDS: hydrALAzine 20 MG INJ IV (00:51)
[2018-08-16 00:55] LABS: ADD MAN DIFF? NO; BASOPHILS % 0.4 % (0.0-2.0); EOSINOPHILS # 0.2 10^3/ul (0.0-0.5); EOSINOPHILS % 2.1 % (0.0-7.0); HEMATOCRIT 30.1 % (42.0-52.0); HEMOGLOBIN 9.8 g/dl (14.0-18.0); LYMPHOCYTES # 1.1 10^3/ul (0.8-2.9); LYMPHOCYTES % 15.8 % (15.0-51.0); MEAN CORPUSCULAR HEMOGLOBIN 30.2 pg (29.0-33.0); MEAN CORPUSCULAR HGB CONC 32.6 g/dl (32.0-37.0); MEAN CORPUSCULAR VOLUME 92.9 fl (82.0-101.0); MEAN PLATELET VOLUME 10.4 fl (7.4-10.4); MONOCYTE # 0.4 10^3/ul (0.3-0.9); MONOCYTES % 6.3 % (0.0-11.0); NEUTROPHIL # 5.2 10^3/ul (1.6-7.5); NEUTROPHILS % 75.1 % (39.0-77.0); PLATELET COUNT 176 10^3/UL (140-415); RED BLOOD COUNT 3.24 10^6/ul (4.70-6.10); RED CELL DISTRIBUTION WIDTH 15.6 % (11.5-14.5)
[2018-08-16 01:01] LABS: ALANINE AMINOTRANSFERASE 46 IU/L (13-69); ALBUMIN/GLOBULIN RATIO 1.48; ALKALINE PHOSPHATASE 89 IU/L (42-121); ANION GAP 20 (5-13); ASPARTATE AMINO TRANSFERASE 23 IU/L (15-46); BILIRUBIN,INDIRECT 0.3 mg/dl (0-1.1); BILIRUBIN,TOTAL 0.3 mg/dl (0.2-1.3); BLOOD UREA NITROGEN 98 mg/dl (7-20); CARBON DIOXIDE 19 mmol/L (21-31); CHLORIDE 99 mmol/L (97-110); GLUCOSE 95 mg/dl (70-220); POTASSIUM 4.6 mmol/L (3.5-5.1); SODIUM 138 mmol/L (135-144); TOTAL PROTEIN 6.7 g/dl (6.1-8.1)
[2018-08-16 01:09] LABS: CREATININE 15.26 mg/dl (0.61-1.24); Estimated GFR 4 mL/min (>60)
[2018-08-16 01:31] LABS: B-TYPE NATRIURETIC PEPTIDE > 175000 PG/ML (0-125)
[2018-08-16] MEDS: ONDANSETRON 4 MG INJ IV (03:44)
[2018-08-16 06:48] LABS: ADD MAN DIFF? NO
[2018-08-16 06:55] LABS: ABNORMAL IP MESSAGE 1; BASOPHILS % 0.1 % (0.0-2.0); HEMATOCRIT 30.2 % (42.0-52.0); HEMOGLOBIN 9.9 g/dl (14.0-18.0); LYMPHOCYTES # 0.5 10^3/ul (0.8-2.9); LYMPHOCYTES % 6.9 % (15.0-51.0); MEAN CORPUSCULAR HEMOGLOBIN 30.4 pg (29.0-33.0); MEAN CORPUSCULAR HGB CONC 32.8 g/dl (32.0-37.0); MEAN CORPUSCULAR VOLUME 92.6 fl (82.0-101.0); MONOCYTE # 0.3 10^3/ul (0.3-0.9); MONOCYTES % 3.4 % (0.0-11.0); NEUTROPHIL # 6.5 10^3/ul (1.6-7.5); NEUTROPHILS % 89.2 % (39.0-77.0); PLATELET COUNT 164 10^3/UL (140-415); POSITIVE DIFF @See below; RED BLOOD COUNT 3.26 10^6/ul (4.70-6.10); RED CELL DISTRIBUTION WIDTH 15.8 % (11.5-14.5)
[2018-08-16 06:55] LABS: WHITE BLOOD COUNT 7.3 10^3/ul (4.8-10.8)
[2018-08-16 07:29] LABS: ANION GAP 23 (5-13); BLOOD UREA NITROGEN 102 mg/dl (7-20); CALCIUM 8.8 mg/dl (8.4-10.2); CARBON DIOXIDE 16 mmol/L (21-31); CHLORIDE 100 mmol/L (97-110); GLUCOSE 102 mg/dl (70-220); SODIUM 139 mmol/L (135-144)
[2018-08-16 07:42] LABS: CREATININE 15.59 mg/dl (0.61-1.24); Estimated GFR 4 mL/min (>60)
[2018-08-16 07:43] LABS: POTASSIUM 5.3 mmol/L (3.5-5.1)
[2018-08-16] MEDS: SEVELAMER CARBONATE 0.8 GM PKT PO ×3 (08:56→18:11)
[2018-08-16] MEDS: ASPIRIN (EC) 81 MG TAB PO (08:58)
[2018-08-16] MEDS: NIFEdipine (XL) 60 MG TAB PO (09:00)
[2018-08-16] MEDS: LOSARTAN 50 MG TAB PO (09:03)
[2018-08-16 12:37] LABS: HEPATITIS B SURFACE ANTIGEN NEGATIVE (NEGATIVE)
[2018-08-16] MEDS: HEPARIN 1000 UNITS/ML 10 ML INJ CATHETER (14:40)
[2018-08-17] MEDS: SEVELAMER CARBONATE 0.8 GM PKT PO ×2 (10:32→11:50)
[2018-08-17] MEDS: ASPIRIN (EC) 81 MG TAB PO (10:32)
[2018-08-17] MEDS: LOSARTAN 50 MG TAB PO (10:33)
[2018-08-17] MEDS: NIFEdipine (XL) 60 MG TAB PO (10:33)
[2018-08-17] MEDS: HEPARIN 1000 UNITS/ML 10 ML INJ CATHETER (11:20)
== END 2018-08-17 15:10 | disposition home or self-care (01) | DRG 189 ==
LOC: E/R 23:25 → TEL 08-16 01:45
PROC: 5A1D70Z Performance of Urinary Filtration, Intermittent, Less than 6 Hours Per Day (ICD-10-PCS; principal; 2018-08-16)
DX: J81.0 Acute pulmonary edema (principal); J96.01 Acute respiratory failure with hypoxia; N18.6 End stage renal disease; I12.0 Hypertensive chronic kidney disease with stage 5 chronic kidney disease or end stage renal disease; I42.9 Cardiomyopathy, unspecified; E87.70 Fluid overload, unspecified; I16.0 Hypertensive urgency; D63.1 Anemia in chronic kidney disease; Z99.2 Dependence on renal dialysis; Z91.15 Patient's noncompliance with renal dialysis
CPT/HCPCS: 71045; 80048; 80053; 83880; 84484; 85025; 87340; 90935; 93005

== ENCOUNTER 2018-10-08 08:05 | Day surgery (SDC) | payer OTHER ==
[2018-10-08 09:09] LABS: ADD MAN DIFF? NO
[2018-10-08 09:12] LABS: WHITE BLOOD COUNT 4.3 10^3/ul (4.8-10.8)
[2018-10-08 09:12] LABS: ABNORMAL IP MESSAGE 1; BASOPHILS % 0.5 % (0.0-2.0); EOSINOPHILS # 0.1 10^3/ul (0.0-0.5); EOSINOPHILS % 1.9 % (0.0-7.0); HEMATOCRIT 26.9 % (42.0-52.0); HEMOGLOBIN 8.8 g/dl (14.0-18.0); LYMPHOCYTES # 0.8 10^3/ul (0.8-2.9); LYMPHOCYTES % 18.1 % (15.0-51.0); MEAN CORPUSCULAR HGB CONC 32.7 g/dl (32.0-37.0); MEAN CORPUSCULAR VOLUME 94.7 fl (82.0-101.0); MONOCYTE # 0.4 10^3/ul (0.3-0.9); PLATELET COUNT 93 10^3/UL (140-415); POSITIVE DIFF @See below; RED BLOOD COUNT 2.84 10^6/ul (4.70-6.10); RED CELL DISTRIBUTION WIDTH 16.9 % (11.5-14.5)
[2018-10-08 09:30] LABS: HOLD TRANSMISSIONS 1
[2018-10-08 09:32] LABS: INR 1.11; PROTIME 14.4 Sec (11.9-14.9); PT RATIO 1.1
[2018-10-08 09:33] LABS: PARTIAL THROMBOPLASTIN TIME 29.7 Sec (23.0-35.0)
[2018-10-08 09:36] LABS: ALANINE AMINOTRANSFERASE 64 IU/L (13-69); ALBUMIN 3.6 g/dl (3.3-4.9); ALBUMIN/GLOBULIN RATIO 1.33; ALKALINE PHOSPHATASE 96 IU/L (42-121); ANION GAP 16 (5-13); ASPARTATE AMINO TRANSFERASE 34 IU/L (15-46); BILIRUBIN,INDIRECT 0.4 mg/dl (0-1.1); BILIRUBIN,TOTAL 0.4 mg/dl (0.2-1.3); CALCIUM 8.9 mg/dl (8.4-10.2); CARBON DIOXIDE 21 mmol/L (21-31); CHLORIDE 105 mmol/L (97-110); GLUCOSE 93 mg/dl (70-220); POTASSIUM 4.2 mmol/L (3.5-5.1); SODIUM 142 mmol/L (135-144); TOTAL PROTEIN 6.3 g/dl (6.1-8.1)
[2018-10-08 09:45] LABS: CREATININE 15.12 mg/dl (0.61-1.24); Estimated GFR 4 mL/min (>60)
[2018-10-08 09:46] LABS: BLOOD UREA NITROGEN 80 mg/dl (7-20)
[2018-10-08 10:33] LABS: ANISOCYTOSIS 2+ (0-0); BAND NEUTROPHILS % (M) 2 % (0-4); BASOPHILS % (M) 1 % (0-2); EOSINOPHILS % (M) 3 % (0-7); LYMPHOCYTES #M 0.8 10^3/ul (0.8-2.9); LYMPHOCYTES % (M) 19 % (15-51); MICROCYTOSIS 2+ (0-0); MONOCYTE #M 0.3 10^3/ul (0.3-0.9); MONOCYTES % (M) 7 % (0-11); PLATELET ESTIMATE DECREASED; POIKILOCYTOSIS 1+ (0-0); POLYCHROMASIA 3+ (0-0); SEG NEUT #M 2.9 10^3/ul (1.6-7.5); SEGMENTED NEUTROPHILS (M) % 68 % (39-77)
[2018-10-08] MEDS ORDERED: LIDOCAINE 1% (MPF) 30 ML INJ (11:58)
[2018-10-08] MEDS ORDERED: THROMBIN 5000 UNIT VIAL (11:58)
[2018-10-08] MEDS ORDERED: GELATIN SIZE 100 SPONGE (11:58)
[2018-10-08] MEDS ORDERED: HEPARIN 1000 UNITS/ML 10 ML INJ (11:58)
[2018-10-08] MEDS: HEPARIN 1000 UNITS/ML 10 ML INJ IRR (12:15)
[2018-10-08] MEDS ORDERED: PROPOFOL 20 ML (12:29)
[2018-10-08] MEDS ORDERED: ROCURONIUM 50 MG INJ (12:29)
[2018-10-08] MEDS ORDERED: FENTAnyl 50 MCG/ML VIAL (12:31)
[2018-10-08] MEDS ORDERED: BUPIVACAINE 0.5% (SDV) 30 ML INJ (13:18)
[2018-10-08] MEDS ORDERED: LIDOCAINE 2% (SDV) 5 ML INJ (13:19)
[2018-10-08] MEDS ORDERED: CEFAZOLIN 1 GM INJ (13:19)
[2018-10-08] MEDS ORDERED: DEXAMETHASONE 4 MG/ML 5 ML INJ (14:15)
[2018-10-08] MEDS ORDERED: ONDANSETRON 4 MG INJ (14:16)
[2018-10-08] MEDS ORDERED: SUGAMMADEX SODIUM 200 MG/2 ML VIAL IV (14:17)
[2018-10-08] MEDS ORDERED: HYDROCODONE/APAP (5/325) TAB PO ×2 (14:30)
[2018-10-08] MEDS ORDERED: morphine 10 MG INJ IM (14:30)
[2018-10-08] MEDS ORDERED: ONDANSETRON 4 MG INJ IV ×2 (14:30→15:00)
[2018-10-08] MEDS: FENTAnyl 50 MCG/ML VIAL IV ×2 (14:58→15:07)
[2018-10-08] MEDS: hydrALAzine 20 MG INJ IV (14:58)
[2018-10-08] MEDS ORDERED: LABETALOL HCL 20MG INJ IV (15:00)
[2018-10-08] MEDS ORDERED: DIPHENHYDRAMINE 50 MG INJ IV (15:00)
[2018-10-08] MEDS ORDERED: MEPERIDINE 25 MG INJ IV (15:00)
[2018-10-08] MEDS ORDERED: ALBUTEROL 0.083% (NEB) 2.5 MG/3 ML AMP HHN (15:00)
[2018-10-08] MEDS ORDERED: FENTAnyl 50 MCG/ML VIAL IV ×2 (15:00)
[2018-10-08] MEDS ORDERED: HYDROmorphONE 1 MG/5 ML IV SYRINGE IV ×3 (15:00)
[2018-10-08] MEDS ORDERED: OXYCODONE/ACETAMINOPHEN (5/325) TAB PO ×2 (15:00)
== END 2018-10-08 17:31 | disposition home or self-care (01) ==
LOC: SDS 08:05
DX: I12.0 Hypertensive chronic kidney disease with stage 5 chronic kidney disease or end stage renal disease (principal); N18.6 End stage renal disease; Z79.82 Long term (current) use of aspirin
CPT/HCPCS: 36821; 71045; 80053; 85025; 85610; 85730; 93005

== ENCOUNTER 2018-10-17 14:59 | Inpatient (IN) | payer OTHER ==
[2018-10-17 15:30] LABS: ADD MAN DIFF? NO
[2018-10-17 15:32] LABS: WHITE BLOOD COUNT 12.4 10^3/ul (4.8-10.8)
[2018-10-17 15:32] LABS: BASOPHILS % 0.2 % (0.0-2.0); EOSINOPHILS % 0.1 % (0.0-7.0); HEMATOCRIT 31.8 % (42.0-52.0); HEMOGLOBIN 10.2 g/dl (14.0-18.0); LYMPHOCYTES # 0.8 10^3/ul (0.8-2.9); LYMPHOCYTES % 6.1 % (15.0-51.0); MEAN CORPUSCULAR HEMOGLOBIN 31.4 pg (29.0-33.0); MEAN CORPUSCULAR HGB CONC 32.1 g/dl (32.0-37.0); MEAN CORPUSCULAR VOLUME 97.8 fl (82.0-101.0); MEAN PLATELET VOLUME 10.9 fl (7.4-10.4); MONOCYTE # 0.9 10^3/ul (0.3-0.9); MONOCYTES % 6.9 % (0.0-11.0); NEUTROPHIL # 10.7 10^3/ul (1.6-7.5); NEUTROPHILS % 86.1 % (39.0-77.0); PLATELET COUNT 173 10^3/UL (140-415); RED BLOOD COUNT 3.25 10^6/ul (4.70-6.10); RED CELL DISTRIBUTION WIDTH 17.1 % (11.5-14.5)
[2018-10-17 15:52] LABS: INR 1.17; PT RATIO 1.2
[2018-10-17 15:53] LABS: ALANINE AMINOTRANSFERASE 53 IU/L (13-69); ALBUMIN 3.9 g/dl (3.3-4.9); ALBUMIN/GLOBULIN RATIO 1.21; ALKALINE PHOSPHATASE 111 IU/L (42-121); ANION GAP 23 (5-13); ASPARTATE AMINO TRANSFERASE 63 IU/L (15-46); BILIRUBIN,INDIRECT 1.1 mg/dl (0-1.1); BILIRUBIN,TOTAL 1.1 mg/dl (0.2-1.3); BLOOD UREA NITROGEN 87 mg/dl (7-20); CALCIUM 9.3 mg/dl (8.4-10.2); CARBON DIOXIDE 18 mmol/L (21-31); CHLORIDE 95 mmol/L (97-110); GLUCOSE 77 mg/dl (70-220); PARTIAL THROMBOPLASTIN TIME 28.1 Sec (23.0-35.0); POTASSIUM 5.2 mmol/L (3.5-5.1); SODIUM 136 mmol/L (135-144); TOTAL PROTEIN 7.1 g/dl (6.1-8.1)
[2018-10-17] MEDS: CEFEPIME 2GM/50 ML (PMX) 50 ML IVPB (15:54)
[2018-10-17 16:01] LABS: CREATININE 17.76 mg/dl (0.61-1.24); Estimated GFR 3 mL/min (>60)
[2018-10-17 16:04] LABS: TROPONIN-I 0.111 ng/ml (0.000-0.120)
[2018-10-17] MEDS: VANCOMYCIN 1 GM (PMX) 250 ML IVPB (17:24)
[2018-10-17] MEDS ORDERED: ACETAMINOPHEN 325 MG TAB PO (18:30)
[2018-10-17] MEDS ORDERED: ONDANSETRON 4 MG INJ IV (18:30)
[2018-10-17 20:04] LABS: LACTIC ACID 1.9 mmol/L (0.5-2.0)
[2018-10-18] MEDS ORDERED: NACL 0.9% 3 ML SYG IV (00:30)
[2018-10-18 01:55] LABS: HEPATITIS B SURFACE ANTIGEN NEGATIVE (NEGATIVE)
[2018-10-18] MEDS: HEPARIN 1000 UNITS/ML 10 ML INJ CATHETER ×2 (03:56→22:43)
[2018-10-18] MEDS: SEVELAMER CARBONATE 800 MG TABLET PO ×3 (08:19→17:11)
[2018-10-18] MEDS: LOSARTAN 50 MG TAB PO (08:19)
[2018-10-18] MEDS: ASPIRIN (EC) 81 MG TAB PO (08:19)
[2018-10-18 10:44] LABS: ADD MAN DIFF? NO
[2018-10-18 10:50] LABS: BASOPHIL # 0.1 10^3/ul (0.0-0.1); BASOPHILS % 0.6 % (0.0-2.0); EOSINOPHILS % 0.4 % (0.0-7.0); HEMATOCRIT 27.4 % (42.0-52.0); LYMPHOCYTES # 0.9 10^3/ul (0.8-2.9); LYMPHOCYTES % 11.6 % (15.0-51.0); MEAN CORPUSCULAR HEMOGLOBIN 31.1 pg (29.0-33.0); MEAN CORPUSCULAR HGB CONC 32.8 g/dl (32.0-37.0); MEAN CORPUSCULAR VOLUME 94.8 fl (82.0-101.0); MEAN PLATELET VOLUME 10.7 fl (7.4-10.4); MONOCYTE # 0.6 10^3/ul (0.3-0.9); MONOCYTES % 7.8 % (0.0-11.0); NEUTROPHIL # 6.4 10^3/ul (1.6-7.5); NEUTROPHILS % 79.4 % (39.0-77.0); PLATELET COUNT 127 10^3/UL (140-415); RED BLOOD COUNT 2.89 10^6/ul (4.70-6.10); RED CELL DISTRIBUTION WIDTH 16.7 % (11.5-14.5)
[2018-10-18 11:10] LABS: ALANINE AMINOTRANSFERASE 123 IU/L (13-69); ALBUMIN 3.5 g/dl (3.3-4.9); ALBUMIN/GLOBULIN RATIO 1.25; ALKALINE PHOSPHATASE 85 IU/L (42-121); ANION GAP 17 (5-13); ASPARTATE AMINO TRANSFERASE 126 IU/L (15-46); BILIRUBIN,INDIRECT 0.8 mg/dl (0-1.1); BILIRUBIN,TOTAL 0.8 mg/dl (0.2-1.3); BLOOD UREA NITROGEN 77 mg/dl (7-20); CALCIUM 8.5 mg/dl (8.4-10.2); CARBON DIOXIDE 25 mmol/L (21-31); CHLORIDE 95 mmol/L (97-110); GLUCOSE 121 mg/dl (70-220); MAGNESIUM 2.1 mg/dl (1.7-2.5); POTASSIUM 4.2 mmol/L (3.5-5.1); SODIUM 137 mmol/L (135-144); TOTAL PROTEIN 6.3 g/dl (6.1-8.1)
[2018-10-18 11:19] LABS: Estimated GFR 4 mL/min (>60)
[2018-10-18] MEDS: CYCLOBENZAPRINE 10 MG TAB PO (11:23)
[2018-10-18 12:55] LABS: FREE THYROXINE INDEX (Calc) 2.51 ug/ml (0.65-3.89); T3 UPTAKE 38.1 % (23.5-40.5); T4 (THYROXINE) 6.6 ug/dl (5.5-11.0)
[2018-10-18] MEDS ORDERED: ACETAMINOPHEN 325 MG TAB PO (23:30)
[2018-10-19 05:47] LABS: ADD MAN DIFF? NO
[2018-10-19 05:48] LABS: ABNORMAL IP MESSAGE 1; BASOPHILS % 0.6 % (0.0-2.0); EOSINOPHILS # 0.1 10^3/ul (0.0-0.5); EOSINOPHILS % 2.1 % (0.0-7.0); HEMATOCRIT 29.1 % (42.0-52.0); HEMOGLOBIN 9.3 g/dl (14.0-18.0); LYMPHOCYTES # 0.7 10^3/ul (0.8-2.9); LYMPHOCYTES % 15.7 % (15.0-51.0); MEAN CORPUSCULAR HEMOGLOBIN 30.7 pg (29.0-33.0); MONOCYTE # 0.6 10^3/ul (0.3-0.9); NEUTROPHIL # 3.2 10^3/ul (1.6-7.5); NEUTROPHILS % 69.4 % (39.0-77.0); PLATELET COUNT 92 10^3/UL (140-415); POSITIVE DIFF @See below; RED BLOOD COUNT 3.03 10^6/ul (4.70-6.10); RED CELL DISTRIBUTION WIDTH 16.4 % (11.5-14.5)
[2018-10-19 05:48] LABS: WHITE BLOOD COUNT 4.7 10^3/ul (4.8-10.8)
[2018-10-19 06:30] LABS: ALANINE AMINOTRANSFERASE 119 IU/L (13-69); ALBUMIN/GLOBULIN RATIO 1.07; ALKALINE PHOSPHATASE 81 IU/L (42-121); ANION GAP 11 (5-13); ASPARTATE AMINO TRANSFERASE 91 IU/L (15-46); BILIRUBIN,INDIRECT 0.6 mg/dl (0-1.1); BILIRUBIN,TOTAL 0.6 mg/dl (0.2-1.3); BLOOD UREA NITROGEN 63 mg/dl (7-20); CALCIUM 8.2 mg/dl (8.4-10.2); CARBON DIOXIDE 29 mmol/L (21-31); CHLORIDE 99 mmol/L (97-110); CREATININE 10.64 mg/dl (0.61-1.24); Estimated GFR 5 mL/min (>60); GLUCOSE 102 mg/dl (70-220); POTASSIUM 3.7 mmol/L (3.5-5.1); SODIUM 139 mmol/L (135-144); TOTAL PROTEIN 5.8 g/dl (6.1-8.1)
[2018-10-19 06:34] LABS: PHOSPHORUS 6.5 mg/dl (2.5-4.9)
[2018-10-19 06:34] LABS: MAGNESIUM 2.1 mg/dl (1.7-2.5)
[2018-10-19 07:03] LABS: HEMOGLOBIN A1C 4.9 % (0-5.9)
[2018-10-19] MEDS: SEVELAMER CARBONATE 800 MG TABLET PO ×3 (08:37→18:36)
[2018-10-19] MEDS: LOSARTAN 50 MG TAB PO (08:38)
[2018-10-19] MEDS: ASPIRIN (EC) 81 MG TAB PO (08:41)
[2018-10-20] MEDS: LOSARTAN 50 MG TAB PO (08:58)
[2018-10-20] MEDS: SEVELAMER CARBONATE 800 MG TABLET PO ×3 (08:58→18:00)
[2018-10-20] MEDS: ASPIRIN (EC) 81 MG TAB PO (08:58)
[2018-10-20] MEDS: HEPARIN 1000 UNITS/ML 10 ML INJ CATHETER (18:26)
[2018-10-21] MEDS: SEVELAMER CARBONATE 800 MG TABLET PO ×2 (08:48→13:34)
[2018-10-21] MEDS: LOSARTAN 50 MG TAB PO (08:49)
[2018-10-21] MEDS: ASPIRIN (EC) 81 MG TAB PO (08:49)
== END 2018-10-21 14:18 | disposition home or self-care (01) | DRG 291 ==
LOC: E/R 14:59 → 6WM 18:10
PROVIDERS: Internal Medicine
PROC: 5A1D70Z Performance of Urinary Filtration, Intermittent, Less than 6 Hours Per Day (ICD-10-PCS; principal; 2018-10-18)
DX: I13.2 Hypertensive heart and chronic kidney disease with heart failure and with stage 5 chronic kidney disease, or end stage renal disease (principal); N18.6 End stage renal disease; I50.23 Acute on chronic systolic (congestive) heart failure; J18.9 Pneumonia, unspecified organism; J96.90 Respiratory failure, unspecified, unspecified whether with hypoxia or hypercapnia; I16.0 Hypertensive urgency; D63.1 Anemia in chronic kidney disease; I42.9 Cardiomyopathy, unspecified; Z99.2 Dependence on renal dialysis; Z91.15 Patient's noncompliance with renal dialysis
CPT/HCPCS: 36415; 71045; 80053; 83036; 83605; 83735; 84100; 84436; 84443; 84479; 84484; 85025; 85610; 85730; 87040-91; 87081; 87340; 90935; 93005; 93306; 96374; 96375; 99285-25

== ENCOUNTER 2018-11-05 21:45 | Inpatient (IN) | payer OTHER ==
[2018-11-05 22:34] LABS: ADD MAN DIFF? NO
[2018-11-05 22:35] LABS: WHITE BLOOD COUNT 5.8 10^3/ul (4.8-10.8)
[2018-11-05 22:35] LABS: BASOPHILS % 0.3 % (0.0-2.0); EOSINOPHILS # 0.1 10^3/ul (0.0-0.5); EOSINOPHILS % 2.1 % (0.0-7.0); HEMATOCRIT 27.3 % (42.0-52.0); HEMOGLOBIN 8.9 g/dl (14.0-18.0); LYMPHOCYTES # 1.1 10^3/ul (0.8-2.9); LYMPHOCYTES % 19.4 % (15.0-51.0); MEAN CORPUSCULAR HEMOGLOBIN 31.6 pg (29.0-33.0); MEAN CORPUSCULAR HGB CONC 32.6 g/dl (32.0-37.0); MEAN CORPUSCULAR VOLUME 96.8 fl (82.0-101.0); MEAN PLATELET VOLUME 10.2 fl (7.4-10.4); MONOCYTE # 0.4 10^3/ul (0.3-0.9); MONOCYTES % 6.7 % (0.0-11.0); NEUTROPHIL # 4.1 10^3/ul (1.6-7.5); NEUTROPHILS % 71.2 % (39.0-77.0); PLATELET COUNT 115 10^3/UL (140-415); RED BLOOD COUNT 2.82 10^6/ul (4.70-6.10); RED CELL DISTRIBUTION WIDTH 17.7 % (11.5-14.5)
[2018-11-05 23:01] LABS: ALANINE AMINOTRANSFERASE 38 IU/L (13-69); ALBUMIN 3.9 g/dl (3.3-4.9); ALKALINE PHOSPHATASE 92 IU/L (42-121); ANION GAP 15 (5-13); ASPARTATE AMINO TRANSFERASE 29 IU/L (15-46); BILIRUBIN,INDIRECT 0.6 mg/dl (0-1.1); BILIRUBIN,TOTAL 0.6 mg/dl (0.2-1.3); BLOOD UREA NITROGEN 54 mg/dl (7-20); CALCIUM 9.6 mg/dl (8.4-10.2); CARBON DIOXIDE 25 mmol/L (21-31); CHLORIDE 98 mmol/L (97-110); Estimated GFR 5 mL/min (>60); GLUCOSE 89 mg/dl (70-220); POTASSIUM 3.8 mmol/L (3.5-5.1); SODIUM 138 mmol/L (135-144); TOTAL PROTEIN 6.9 g/dl (6.1-8.1)
[2018-11-05 23:05] LABS: INR 1.07; PARTIAL THROMBOPLASTIN TIME 27.2 Sec (23.0-35.0); PT RATIO 1.1
[2018-11-05 23:11] LABS: TROPONIN-I 0.094 ng/ml (0.000-0.120)
[2018-11-05 23:25] LABS: B-TYPE NATRIURETIC PEPTIDE > 175000 PG/ML (0-125)
[2018-11-06 00:55] LABS: LACTIC ACID 0.6 mmol/L (0.5-2.0)
[2018-11-06] MEDS ORDERED: ACETAMINOPHEN 325 MG TAB PO (01:00)
[2018-11-06] MEDS ORDERED: ONDANSETRON 4 MG INJ IV (01:00)
[2018-11-06 03:59] LABS: LACTIC ACID 0.8 mmol/L (0.5-2.0)
[2018-11-06] MEDS: SEVELAMER CARBONATE 0.8 GM PKT PO ×2 (12:00→12:51)
[2018-11-06] MEDS: ASPIRIN (EC) 81 MG TAB PO (12:30)
[2018-11-06] MEDS: MULTIVIT/CA CARB/B CMPLX/FA TAB PO (12:52)
[2018-11-06] MEDS: LOSARTAN 50 MG TAB PO (12:52)
[2018-11-06] MEDS ORDERED: HEPARIN 1000 UNITS/ML 10 ML INJ CATHETER (18:00)
[2018-11-07 06:37] LABS: ADD MAN DIFF? NO
[2018-11-07 06:47] LABS: WHITE BLOOD COUNT 4.1 10^3/ul (4.8-10.8)
[2018-11-07 06:47] LABS: BASOPHILS % 0.5 % (0.0-2.0); EOSINOPHILS # 0.1 10^3/ul (0.0-0.5); EOSINOPHILS % 2.9 % (0.0-7.0); HEMATOCRIT 27.7 % (42.0-52.0); HEMOGLOBIN 8.8 g/dl (14.0-18.0); LYMPHOCYTES # 0.8 10^3/ul (0.8-2.9); LYMPHOCYTES % 20.3 % (15.0-51.0); MEAN CORPUSCULAR HEMOGLOBIN 31.2 pg (29.0-33.0); MEAN CORPUSCULAR HGB CONC 31.8 g/dl (32.0-37.0); MEAN CORPUSCULAR VOLUME 98.2 fl (82.0-101.0); MEAN PLATELET VOLUME 10.8 fl (7.4-10.4); MONOCYTE # 0.4 10^3/ul (0.3-0.9); MONOCYTES % 9.9 % (0.0-11.0); NEUTROPHIL # 2.7 10^3/ul (1.6-7.5); NEUTROPHILS % 66.2 % (39.0-77.0); PLATELET COUNT 102 10^3/UL (140-415); RED BLOOD COUNT 2.82 10^6/ul (4.70-6.10); RED CELL DISTRIBUTION WIDTH 17.9 % (11.5-14.5)
[2018-11-07 07:14] LABS: ANION GAP 11 (5-13); BLOOD UREA NITROGEN 55 mg/dl (7-20); CALCIUM 9.1 mg/dl (8.4-10.2); CARBON DIOXIDE 28 mmol/L (21-31); CHLORIDE 100 mmol/L (97-110); Estimated GFR 6 mL/min (>60); GLUCOSE 95 mg/dl (70-220); MAGNESIUM 2.4 mg/dl (1.7-2.5); PHOSPHORUS 8.1 mg/dl (2.5-4.9); POTASSIUM 4.1 mmol/L (3.5-5.1); SODIUM 139 mmol/L (135-144)
[2018-11-07] MEDS: SEVELAMER CARBONATE 0.8 GM PKT PO (08:19)
[2018-11-07] MEDS: ASPIRIN (EC) 81 MG TAB PO (08:23)
[2018-11-07] MEDS: MULTIVIT/CA CARB/B CMPLX/FA TAB PO (08:23)
[2018-11-07] MEDS: LOSARTAN 50 MG TAB PO (08:28)
[2018-11-07] MEDS: SEVELAMER CARBONATE 800 MG TABLET PO ×4 (09:03→17:49)
[2018-11-07] MEDS ORDERED: EPOETIN ALFA-EPBX (ESRD) 10,000 UNIT/ML VIAL SC (10:00)
[2018-11-07] MEDS: EPOETIN ALFA-EPBX (ESRD) 10,000 UNIT/ML VIAL SC ×2 (17:42→17:49)
[2018-11-07] MEDS: HEPARIN 1000 UNITS/ML 10 ML INJ CATHETER (19:05)
== END 2018-11-07 20:10 | disposition home or self-care (01) | DRG 205 ==
LOC: TEL 11-06 18:34 → E/R 21:45 → TEL 11-06 00:44
PROC: 5A09357 Assistance with Respiratory Ventilation, Less than 24 Consecutive Hours, Continuous Positive Airway Pressure (ICD-10-PCS; 2018-11-05)
PROC: 5A1D70Z Performance of Urinary Filtration, Intermittent, Less than 6 Hours Per Day (ICD-10-PCS; 2018-11-06)
PROC: 5A1D70Z Performance of Urinary Filtration, Intermittent, Less than 6 Hours Per Day (ICD-10-PCS; principal; 2018-11-07)
DX: R09.2 Respiratory arrest (principal); N18.6 End stage renal disease; J81.1 Chronic pulmonary edema; I12.0 Hypertensive chronic kidney disease with stage 5 chronic kidney disease or end stage renal disease; I42.9 Cardiomyopathy, unspecified; D64.9 Anemia, unspecified; E83.9 Disorder of mineral metabolism, unspecified
CPT/HCPCS: 36415; 71045; 80048; 80053; 83605; 83735; 83880; 84100; 84484; 85025; 85610; 85730; 90935; 93005; 94660; 99285-25

== ENCOUNTER 2018-11-15 19:55 | Inpatient (IN) | payer OTHER ==
[2018-11-15 21:14] LABS: ADD MAN DIFF? NO
[2018-11-15] MEDS: ASPIRIN 81 MG TAB PO (21:15)
[2018-11-15 21:16] LABS: BASOPHILS % 0.6 % (0.0-2.0); EOSINOPHILS # 0.1 10^3/ul (0.0-0.5); EOSINOPHILS % 1.9 % (0.0-7.0); HEMATOCRIT 29.2 % (42.0-52.0); HEMOGLOBIN 9.5 g/dl (14.0-18.0); LYMPHOCYTES # 1.3 10^3/ul (0.8-2.9); LYMPHOCYTES % 18.4 % (15.0-51.0); MEAN CORPUSCULAR HEMOGLOBIN 32.2 pg (29.0-33.0); MEAN CORPUSCULAR HGB CONC 32.5 g/dl (32.0-37.0); MEAN PLATELET VOLUME 9.6 fl (7.4-10.4); MONOCYTE # 0.6 10^3/ul (0.3-0.9); MONOCYTES % 8.2 % (0.0-11.0); NEUTROPHIL # 4.8 10^3/ul (1.6-7.5); NEUTROPHILS % 70.6 % (39.0-77.0); PLATELET COUNT 131 10^3/UL (140-415); RED BLOOD COUNT 2.95 10^6/ul (4.70-6.10); RED CELL DISTRIBUTION WIDTH 17.5 % (11.5-14.5)
[2018-11-15 21:16] LABS: WHITE BLOOD COUNT 6.8 10^3/ul (4.8-10.8)
[2018-11-15] MEDS: NITROGLYCERIN (SL) 0.4 MG TAB SL (21:16)
[2018-11-15] MEDS: NITROGLYCERIN 2% 1 GM OINT PKT TD (21:16)
[2018-11-15] MEDS ORDERED: ONDANSETRON 4 MG INJ IV (21:30)
[2018-11-15] MEDS ORDERED: ACETAMINOPHEN 325 MG TAB PO (21:30)
[2018-11-15 21:38] LABS: ANION GAP 17 (5-13); BLOOD UREA NITROGEN 71 mg/dl (7-20); CALCIUM 9.2 mg/dl (8.4-10.2); CARBON DIOXIDE 24 mmol/L (21-31); CHLORIDE 98 mmol/L (97-110); Estimated GFR 4 mL/min (>60); GLUCOSE 99 mg/dl (70-220); POTASSIUM 4.5 mmol/L (3.5-5.1); SODIUM 139 mmol/L (135-144)
[2018-11-16] MEDS ORDERED: NACL 0.9% 3 ML SYG IV (01:30)
[2018-11-16] MEDS ORDERED: ONDANSETRON 4 MG INJ IV (01:30)
[2018-11-16] MEDS ORDERED: ACETAMINOPHEN 325 MG TAB PO (01:30)
[2018-11-16] MEDS: NITROGLYCERIN 2% 1 GM OINT PKT TD ×2 (01:47→05:10)
[2018-11-16 03:35] LABS: ADD MAN DIFF? NO
[2018-11-16 03:59] LABS: BASOPHILS % 0.6 % (0.0-2.0); EOSINOPHILS # 0.1 10^3/ul (0.0-0.5); EOSINOPHILS % 1.5 % (0.0-7.0); HEMATOCRIT 27.9 % (42.0-52.0); HEMOGLOBIN 8.9 g/dl (14.0-18.0); LYMPHOCYTES # 1.1 10^3/ul (0.8-2.9); LYMPHOCYTES % 17.4 % (15.0-51.0); MEAN CORPUSCULAR HEMOGLOBIN 32.1 pg (29.0-33.0); MEAN CORPUSCULAR HGB CONC 31.9 g/dl (32.0-37.0); MEAN CORPUSCULAR VOLUME 100.7 fl (82.0-101.0); MEAN PLATELET VOLUME 10.4 fl (7.4-10.4); MONOCYTE # 0.4 10^3/ul (0.3-0.9); MONOCYTES % 7.1 % (0.0-11.0); NEUTROPHIL # 4.5 10^3/ul (1.6-7.5); NEUTROPHILS % 73.1 % (39.0-77.0); PLATELET COUNT 120 10^3/UL (140-415); RED BLOOD COUNT 2.77 10^6/ul (4.70-6.10); RED CELL DISTRIBUTION WIDTH 17.4 % (11.5-14.5)
[2018-11-16 03:59] LABS: WHITE BLOOD COUNT 6.2 10^3/ul (4.8-10.8)
[2018-11-16 04:02] LABS: ALANINE AMINOTRANSFERASE 40 IU/L (13-69); ALBUMIN 3.8 g/dl (3.3-4.9); ALKALINE PHOSPHATASE 94 IU/L (42-121); ANION GAP 18 (5-13); ASPARTATE AMINO TRANSFERASE 35 IU/L (15-46); BILIRUBIN,INDIRECT 0.5 mg/dl (0-1.1); BILIRUBIN,TOTAL 0.5 mg/dl (0.2-1.3); BLOOD UREA NITROGEN 74 mg/dl (7-20); CALCIUM 9.3 mg/dl (8.4-10.2); CARBON DIOXIDE 25 mmol/L (21-31); CHLORIDE 96 mmol/L (97-110); GLUCOSE 115 mg/dl (70-220); MAGNESIUM 2.8 mg/dl (1.7-2.5); PHOSPHORUS 8.2 mg/dl (2.5-4.9); SODIUM 139 mmol/L (135-144); TOTAL PROTEIN 6.5 g/dl (6.1-8.1)
[2018-11-16 04:06] LABS: CREATINE KINASE 215 IU/L (23-200)
[2018-11-16 04:08] LABS: CREATININE 14.62 mg/dl (0.61-1.24); Estimated GFR 4 mL/min (>60)
[2018-11-16 04:20] LABS: CK-MB 4.31 ng/ml (0.0-2.4); TROPONIN-I 0.112 ng/ml (0.000-0.120)
[2018-11-16] MEDS: SEVELAMER CARBONATE 0.8 GM PKT PO ×2 (07:55→08:08)
[2018-11-16] MEDS: MULTIVIT/CA CARB/B CMPLX/FA TAB PO (08:08)
[2018-11-16] MEDS: ASPIRIN (EC) 81 MG TAB PO (08:08)
[2018-11-16] MEDS: LOSARTAN 50 MG TAB PO (08:09)
[2018-11-16 09:40] LABS: CREATINE KINASE 269 IU/L (23-200)
[2018-11-16 09:52] LABS: CK INDEX 2.1
[2018-11-16 09:53] LABS: CK-MB 5.59 ng/ml (0.0-2.4)
[2018-11-16 09:56] LABS: TROPONIN-I 0.121 ng/ml (0.000-0.120)
[2018-11-16] MEDS: SEVELAMER CARBONATE 800 MG TABLET PO ×2 (12:00→17:27)
[2018-11-16 16:39] LABS: HEPATITIS B SURFACE ANTIGEN NEGATIVE (NEGATIVE)
[2018-11-16] MEDS: HEPARIN 5,000 UNIT/1 ML VIAL CATHETER (22:50)
[2018-11-17] MEDS: SEVELAMER CARBONATE 800 MG TABLET PO ×3 (08:05→17:01)
[2018-11-17] MEDS: ASPIRIN (EC) 81 MG TAB PO (08:06)
[2018-11-17] MEDS: LOSARTAN 50 MG TAB PO (08:06)
[2018-11-17] MEDS: MULTIVIT/CA CARB/B CMPLX/FA TAB PO (08:06)
[2018-11-17] MEDS: EPOETIN ALFA-EPBX (ESRD) 10,000 UNIT/ML VIAL SC (08:12)
[2018-11-17 09:13] LABS: ADD MAN DIFF? NO; BASOPHILS % 0.5 % (0.0-2.0); EOSINOPHILS # 0.1 10^3/ul (0.0-0.5); EOSINOPHILS % 2.6 % (0.0-7.0); HEMATOCRIT 28.5 % (42.0-52.0); HEMOGLOBIN 9.1 g/dl (14.0-18.0); LYMPHOCYTES # 0.7 10^3/ul (0.8-2.9); LYMPHOCYTES % 16.5 % (15.0-51.0); MEAN CORPUSCULAR HEMOGLOBIN 31.5 pg (29.0-33.0); MEAN CORPUSCULAR HGB CONC 31.9 g/dl (32.0-37.0); MEAN CORPUSCULAR VOLUME 98.6 fl (82.0-101.0); MEAN PLATELET VOLUME 10.4 fl (7.4-10.4); MONOCYTE # 0.4 10^3/ul (0.3-0.9); MONOCYTES % 8.4 % (0.0-11.0); NEUTROPHIL # 3.1 10^3/ul (1.6-7.5); NEUTROPHILS % 71.8 % (39.0-77.0); PLATELET COUNT 101 10^3/UL (140-415); RED BLOOD COUNT 2.89 10^6/ul (4.70-6.10); RED CELL DISTRIBUTION WIDTH 17.7 % (11.5-14.5)
[2018-11-17 09:13] LABS: WHITE BLOOD COUNT 4.3 10^3/ul (4.8-10.8)
[2018-11-17 09:47] LABS: ANION GAP 14 (5-13); BLOOD UREA NITROGEN 58 mg/dl (7-20); CALCIUM 9.2 mg/dl (8.4-10.2); CARBON DIOXIDE 25 mmol/L (21-31); CHLORIDE 98 mmol/L (97-110); CREATININE 11.15 mg/dl (0.61-1.24); Estimated GFR 5 mL/min (>60); GLUCOSE 125 mg/dl (70-220); MAGNESIUM 2.4 mg/dl (1.7-2.5); PHOSPHORUS 6.8 mg/dl (2.5-4.9); POTASSIUM 4.1 mmol/L (3.5-5.1); SODIUM 137 mmol/L (135-144)
[2018-11-17 10:18] LABS: HEMOGLOBIN A1C 4.7 % (0-5.9)
[2018-11-17] MEDS: HEPARIN 1000 UNITS/ML 10 ML INJ CATHETER (20:02)
[2018-11-18] MEDS: SEVELAMER CARBONATE 800 MG TABLET PO ×3 (07:59→17:51)
[2018-11-18] MEDS: ASPIRIN (EC) 81 MG TAB PO (08:33)
[2018-11-18] MEDS: MULTIVIT/CA CARB/B CMPLX/FA TAB PO (08:33)
[2018-11-18] MEDS: LOSARTAN 50 MG TAB PO (08:34)
[2018-11-18] MEDS: HEPARIN 1000 UNITS/ML 10 ML INJ CATHETER (13:28)
[2018-11-19] MEDS: SEVELAMER CARBONATE 800 MG TABLET PO (08:00)
[2018-11-19] MEDS: LOSARTAN 50 MG TAB PO (08:01)
[2018-11-19] MEDS: MULTIVIT/CA CARB/B CMPLX/FA TAB PO (08:01)
[2018-11-19] MEDS: ASPIRIN (EC) 81 MG TAB PO (08:01)
== END 2018-11-19 10:53 | disposition home or self-care (01) | DRG 640 ==
LOC: TEL 21:26 → E/R 19:55
PROC: 5A1D70Z Performance of Urinary Filtration, Intermittent, Less than 6 Hours Per Day (ICD-10-PCS; principal; 2018-11-16)
DX: E87.70 Fluid overload, unspecified (principal); N18.6 End stage renal disease; J96.01 Acute respiratory failure with hypoxia; I12.0 Hypertensive chronic kidney disease with stage 5 chronic kidney disease or end stage renal disease; I42.9 Cardiomyopathy, unspecified; Z99.2 Dependence on renal dialysis; I16.0 Hypertensive urgency; D64.9 Anemia, unspecified
CPT/HCPCS: 36415; 71045; 71046; 80048; 80053; 82550; 82553; 83036; 83735; 84100; 84484; 85025; 87081; 87340; 90935; 93005; 99285-25

== ENCOUNTER 2018-11-26 19:07 | Inpatient (IN) | payer OTHER ==
[2018-11-26 19:42] LABS: ADD MAN DIFF? NO
[2018-11-26 19:45] LABS: WHITE BLOOD COUNT 6.8 10^3/ul (4.8-10.8)
[2018-11-26 19:45] LABS: BASOPHILS % 0.4 % (0.0-2.0); EOSINOPHILS # 0.1 10^3/ul (0.0-0.5); EOSINOPHILS % 1.2 % (0.0-7.0); HEMATOCRIT 27.9 % (42.0-52.0); HEMOGLOBIN 9.2 g/dl (14.0-18.0); LYMPHOCYTES # 1.2 10^3/ul (0.8-2.9); LYMPHOCYTES % 17.6 % (15.0-51.0); MEAN CORPUSCULAR HEMOGLOBIN 32.5 pg (29.0-33.0); MEAN CORPUSCULAR VOLUME 98.6 fl (82.0-101.0); MONOCYTE # 0.6 10^3/ul (0.3-0.9); MONOCYTES % 8.4 % (0.0-11.0); NEUTROPHIL # 4.9 10^3/ul (1.6-7.5); NEUTROPHILS % 72.1 % (39.0-77.0); PLATELET COUNT 137 10^3/UL (140-415); RED BLOOD COUNT 2.83 10^6/ul (4.70-6.10)
[2018-11-26] MEDS: morphine 2 MG INJ IV (19:56)
[2018-11-26] MEDS: ONDANSETRON 4 MG INJ IV (19:56)
[2018-11-26] MEDS: NITROGLYCERIN 2% 1 GM OINT PKT TD (19:56)
[2018-11-26] MEDS ORDERED: ONDANSETRON 4 MG INJ IV (20:00)
[2018-11-26] MEDS ORDERED: ACETAMINOPHEN 325 MG TAB PO (20:00)
[2018-11-26 20:03] LABS: ANION GAP 20 (5-13); BLOOD UREA NITROGEN 75 mg/dl (7-20); CALCIUM 9.4 mg/dl (8.4-10.2); CARBON DIOXIDE 19 mmol/L (21-31); CHLORIDE 100 mmol/L (97-110); CREATININE 13.21 mg/dl (0.61-1.24); Estimated GFR 4 mL/min (>60); GLUCOSE 113 mg/dl (70-220); POTASSIUM 3.9 mmol/L (3.5-5.1); SODIUM 139 mmol/L (135-144)
[2018-11-26 20:05] LABS: INR 1.01; PROTIME 13.4 Sec (11.9-14.9)
[2018-11-26 20:06] LABS: PARTIAL THROMBOPLASTIN TIME 28.5 Sec (23.0-35.0)
[2018-11-26 20:15] LABS: TROPONIN-I 0.062 ng/ml (0.000-0.120)
[2018-11-27] MEDS: HEPARIN 1000 UNITS/ML 10 ML INJ CATHETER ×2 (01:41→20:14)
[2018-11-27 07:05] LABS: ADD MAN DIFF? NO
[2018-11-27 07:10] LABS: BASOPHILS % 0.5 % (0.0-2.0); EOSINOPHILS # 0.1 10^3/ul (0.0-0.5); EOSINOPHILS % 2.1 % (0.0-7.0); HEMATOCRIT 26.6 % (42.0-52.0); HEMOGLOBIN 8.5 g/dl (14.0-18.0); LYMPHOCYTES # 0.9 10^3/ul (0.8-2.9); LYMPHOCYTES % 20.6 % (15.0-51.0); MEAN CORPUSCULAR HEMOGLOBIN 32.1 pg (29.0-33.0); MEAN CORPUSCULAR VOLUME 100.4 fl (82.0-101.0); MEAN PLATELET VOLUME 10.3 fl (7.4-10.4); MONOCYTE # 0.4 10^3/ul (0.3-0.9); MONOCYTES % 9.2 % (0.0-11.0); NEUTROPHIL # 2.9 10^3/ul (1.6-7.5); NEUTROPHILS % 67.1 % (39.0-77.0); PLATELET COUNT 111 10^3/UL (140-415); RED BLOOD COUNT 2.65 10^6/ul (4.70-6.10); RED CELL DISTRIBUTION WIDTH 16.9 % (11.5-14.5)
[2018-11-27 07:10] LABS: WHITE BLOOD COUNT 4.4 10^3/ul (4.8-10.8)
[2018-11-27 07:36] LABS: ANION GAP 10 (5-13); BLOOD UREA NITROGEN 50 mg/dl (7-20); CALCIUM 9.3 mg/dl (8.4-10.2); CARBON DIOXIDE 26 mmol/L (21-31); CHLORIDE 102 mmol/L (97-110); CREATININE 9.47 mg/dl (0.61-1.24); Estimated GFR 6 mL/min (>60); GLUCOSE 97 mg/dl (70-220); MAGNESIUM 2.3 mg/dl (1.7-2.5); PHOSPHORUS 6.6 mg/dl (2.5-4.9); POTASSIUM 3.9 mmol/L (3.5-5.1); SODIUM 138 mmol/L (135-144)
[2018-11-27] MEDS: SEVELAMER CARBONATE 0.8 GM PKT PO ×2 (07:55→08:47)
[2018-11-27] MEDS: MULTIVIT/CA CARB/B CMPLX/FA TAB PO (08:48)
[2018-11-27] MEDS: LOSARTAN 50 MG TAB PO (08:48)
[2018-11-27] MEDS: ASPIRIN (EC) 81 MG TAB PO (08:48)
[2018-11-27] MEDS: HEPARIN 5,000 UNIT/1 ML VIAL SC ×2 (08:58→21:00)
[2018-11-27] MEDS: SEVELAMER CARBONATE 800 MG TABLET PO ×3 (09:28→17:21)
[2018-11-28] MEDS: HEPARIN 5,000 UNIT/1 ML VIAL SC (09:00)
[2018-11-28] MEDS: SEVELAMER CARBONATE 800 MG TABLET PO (09:58)
[2018-11-28] MEDS: MULTIVIT/CA CARB/B CMPLX/FA TAB PO (09:58)
[2018-11-28] MEDS: ASPIRIN (EC) 81 MG TAB PO (09:58)
[2018-11-28] MEDS: LOSARTAN 50 MG TAB PO (09:59)
== END 2018-11-28 11:15 | disposition home or self-care (01) | DRG 189 ==
LOC: E/R 19:07 → TEL 19:43
DX: J96.01 Acute respiratory failure with hypoxia (principal); N18.6 End stage renal disease; J81.1 Chronic pulmonary edema; I42.9 Cardiomyopathy, unspecified; I12.0 Hypertensive chronic kidney disease with stage 5 chronic kidney disease or end stage renal disease; E87.70 Fluid overload, unspecified; I16.0 Hypertensive urgency; D64.9 Anemia, unspecified; Z99.2 Dependence on renal dialysis; Z79.82 Long term (current) use of aspirin
CPT/HCPCS: 36415; 71045; 80048; 83735; 84100; 84484; 85025; 85610; 85730; 90935; 93005; 99285-25

== ENCOUNTER 2018-12-05 16:41 | Inpatient (IN) | payer OTHER ==
[2018-12-05 17:04] LABS: ADD MAN DIFF? NO
[2018-12-05 17:07] LABS: BASOPHILS % 0.2 % (0.0-2.0); EOSINOPHILS # 0.1 10^3/ul (0.0-0.5); EOSINOPHILS % 1.6 % (0.0-7.0); HEMATOCRIT 29.7 % (42.0-52.0); HEMOGLOBIN 9.6 g/dl (14.0-18.0); LYMPHOCYTES # 0.9 10^3/ul (0.8-2.9); LYMPHOCYTES % 21.8 % (15.0-51.0); MEAN CORPUSCULAR HEMOGLOBIN 31.5 pg (29.0-33.0); MEAN CORPUSCULAR HGB CONC 32.3 g/dl (32.0-37.0); MEAN CORPUSCULAR VOLUME 97.4 fl (82.0-101.0); MEAN PLATELET VOLUME 9.4 fl (7.4-10.4); MONOCYTE # 0.4 10^3/ul (0.3-0.9); MONOCYTES % 9.5 % (0.0-11.0); NEUTROPHIL # 2.9 10^3/ul (1.6-7.5); NEUTROPHILS % 66.7 % (39.0-77.0); PLATELET COUNT 107 10^3/UL (140-415); RED BLOOD COUNT 3.05 10^6/ul (4.70-6.10); RED CELL DISTRIBUTION WIDTH 16.8 % (11.5-14.5)
[2018-12-05 17:07] LABS: WHITE BLOOD COUNT 4.3 10^3/ul (4.8-10.8)
[2018-12-05 17:27] LABS: ANION GAP 15 (5-13); BLOOD UREA NITROGEN 53 mg/dl (7-20); CALCIUM 9.3 mg/dl (8.4-10.2); CARBON DIOXIDE 25 mmol/L (21-31); CHLORIDE 100 mmol/L (97-110); CREATININE 11.33 mg/dl (0.61-1.24); Estimated GFR 5 mL/min (>60); GLUCOSE 84 mg/dl (70-220); POTASSIUM 3.6 mmol/L (3.5-5.1); PROTIME 14.3 Sec (11.9-14.9); PT RATIO 1.1; SODIUM 140 mmol/L (135-144)
[2018-12-05 17:28] LABS: PARTIAL THROMBOPLASTIN TIME 30.9 Sec (23.0-35.0)
[2018-12-05] MEDS: NITROGLYCERIN 2% 1 GM OINT PKT TD (17:28)
[2018-12-05] MEDS ORDERED: ONDANSETRON 4 MG INJ IV (18:00)
[2018-12-05] MEDS ORDERED: ACETAMINOPHEN 325 MG TAB PO (18:00)
[2018-12-06 00:43] LABS: HEPATITIS B SURFACE ANTIGEN NEGATIVE (NEGATIVE)
[2018-12-06] MEDS: HEPARIN 1000 UNITS/ML 10 ML INJ CATHETER ×2 (04:20→20:26)
[2018-12-06] MEDS: SEVELAMER CARBONATE 0.8 GM PKT PO ×2 (08:00→08:11)
[2018-12-06] MEDS: LOSARTAN 50 MG TAB PO (08:12)
[2018-12-06] MEDS: ASPIRIN (EC) 81 MG TAB PO (08:12)
[2018-12-06 09:13] LABS: ADD MAN DIFF? NO
[2018-12-06 09:18] LABS: ABNORMAL IP MESSAGE 1; BASOPHILS % 0.5 % (0.0-2.0); EOSINOPHILS # 0.1 10^3/ul (0.0-0.5); EOSINOPHILS % 1.7 % (0.0-7.0); HEMATOCRIT 30.1 % (42.0-52.0); HEMOGLOBIN 9.6 g/dl (14.0-18.0); LYMPHOCYTES # 0.6 10^3/ul (0.8-2.9); LYMPHOCYTES % 14.4 % (15.0-51.0); MEAN CORPUSCULAR HEMOGLOBIN 31.5 pg (29.0-33.0); MEAN CORPUSCULAR HGB CONC 31.9 g/dl (32.0-37.0); MEAN CORPUSCULAR VOLUME 98.7 fl (82.0-101.0); MEAN PLATELET VOLUME 9.8 fl (7.4-10.4); MONOCYTE # 0.3 10^3/ul (0.3-0.9); MONOCYTES % 8.2 % (0.0-11.0); PLATELET COUNT 104 10^3/UL (140-415); POSITIVE DIFF @See below; RED BLOOD COUNT 3.05 10^6/ul (4.70-6.10)
[2018-12-06 09:42] LABS: ANION GAP 8 (5-13); BLOOD UREA NITROGEN 39 mg/dl (7-20); CALCIUM 9.3 mg/dl (8.4-10.2); CARBON DIOXIDE 29 mmol/L (21-31); CHLORIDE 100 mmol/L (97-110); CREATININE 8.43 mg/dl (0.61-1.24); Estimated GFR 7 mL/min (>60); GLUCOSE 120 mg/dl (70-220); MAGNESIUM 2.1 mg/dl (1.7-2.5); PHOSPHORUS 5.3 mg/dl (2.5-4.9); POTASSIUM 4.1 mmol/L (3.5-5.1); SODIUM 137 mmol/L (135-144)
[2018-12-06] MEDS: SEVELAMER CARBONATE 800 MG TABLET PO ×2 (11:49→17:08)
[2018-12-07] MEDS: SEVELAMER CARBONATE 800 MG TABLET PO (08:41)
[2018-12-07] MEDS: ASPIRIN (EC) 81 MG TAB PO (08:42)
[2018-12-07] MEDS: LOSARTAN 50 MG TAB PO (08:42)
== END 2018-12-07 09:40 | disposition home or self-care (01) | DRG 189 ==
LOC: E/R 16:41 → 6WM 17:53
DX: J96.01 Acute respiratory failure with hypoxia (principal); N18.6 End stage renal disease; I13.11 Hypertensive heart and chronic kidney disease without heart failure, with stage 5 chronic kidney disease, or end stage renal disease; I42.9 Cardiomyopathy, unspecified; D61.818 Other pancytopenia; I16.0 Hypertensive urgency; Z99.2 Dependence on renal dialysis; M89.8X9 Other specified disorders of bone, unspecified site; Z79.82 Long term (current) use of aspirin
CPT/HCPCS: 36415; 71045; 80048; 83735; 84100; 84484; 85025; 85610; 85730; 87081; 87340; 90935; 93005; 99217; 99285-25

== ENCOUNTER 2018-12-17 21:01 | Inpatient (IN) | payer OTHER ==
[2018-12-17 22:32] LABS: ADD MAN DIFF? NO
[2018-12-17 22:33] LABS: WHITE BLOOD COUNT 5.2 10^3/ul (4.8-10.8)
[2018-12-17 22:33] LABS: BASOPHILS % 0.4 % (0.0-2.0); EOSINOPHILS # 0.2 10^3/ul (0.0-0.5); EOSINOPHILS % 3.3 % (0.0-7.0); HEMATOCRIT 25.5 % (42.0-52.0); HEMOGLOBIN 8.5 g/dl (14.0-18.0); LYMPHOCYTES # 1.1 10^3/ul (0.8-2.9); LYMPHOCYTES % 21.4 % (15.0-51.0); MEAN CORPUSCULAR HEMOGLOBIN 31.6 pg (29.0-33.0); MEAN CORPUSCULAR HGB CONC 33.3 g/dl (32.0-37.0); MEAN CORPUSCULAR VOLUME 94.8 fl (82.0-101.0); MEAN PLATELET VOLUME 9.8 fl (7.4-10.4); MONOCYTE # 0.3 10^3/ul (0.3-0.9); MONOCYTES % 6.5 % (0.0-11.0); NEUTROPHIL # 3.6 10^3/ul (1.6-7.5); PLATELET COUNT 115 10^3/UL (140-415); RED BLOOD COUNT 2.69 10^6/ul (4.70-6.10); RED CELL DISTRIBUTION WIDTH 15.9 % (11.5-14.5)
[2018-12-17 22:47] LABS: MODE ROOM AIR; MetHgb Venous 0.1 %; Sample Type Blood venous; Site VENOUS LINE; Venous COHb 0.3 %; Venous Fraction OxyHgb 94.4 %; Venous Oxygen Sat 94.8 mmHG (55.0-75.0); Venous Total Hemglobin 9.6 g/dl
[2018-12-17 22:53] LABS: INR 1.16; PROTIME 14.9 Sec (11.9-14.9); PT RATIO 1.2
[2018-12-17 22:54] LABS: ALANINE AMINOTRANSFERASE 32 IU/L (13-69); ALBUMIN 3.8 g/dl (3.3-4.9); ALBUMIN/GLOBULIN RATIO 1.18; ALKALINE PHOSPHATASE 97 IU/L (42-121); ANION GAP 18 (5-13); ASPARTATE AMINO TRANSFERASE 31 IU/L (15-46); BILIRUBIN,INDIRECT 0.3 mg/dl (0-1.1); BILIRUBIN,TOTAL 0.3 mg/dl (0.2-1.3); BLOOD UREA NITROGEN 69 mg/dl (7-20); CARBON DIOXIDE 21 mmol/L (21-31); CHLORIDE 97 mmol/L (97-110); GLUCOSE 98 mg/dl (70-220); PARTIAL THROMBOPLASTIN TIME 28.8 Sec (23.0-35.0); POTASSIUM 3.8 mmol/L (3.5-5.1); SODIUM 136 mmol/L (135-144)
[2018-12-17 23:00] LABS: CREATININE 17.42 mg/dl (0.61-1.24); Estimated GFR 3 mL/min (>60)
[2018-12-17 23:18] LABS: B-TYPE NATRIURETIC PEPTIDE > 175000 PG/ML (0-125)
[2018-12-18] MEDS ORDERED: ONDANSETRON 4 MG INJ IV ×2 (01:00→01:30)
[2018-12-18] MEDS ORDERED: ACETAMINOPHEN 325 MG TAB PO (01:00)
[2018-12-18] MEDS ORDERED: ZOLPIDEM 5 MG TAB PO (01:30)
[2018-12-18] MEDS ORDERED: NACL 0.9% 3 ML SYG IV (01:30)
[2018-12-18] MEDS: NITROGLYCERIN (SL) 0.4 MG TAB SL (04:56)
[2018-12-18] MEDS: SEVELAMER CARBONATE 0.8 GM PKT PO ×4 (08:25→18:07)
[2018-12-18] MEDS: LOSARTAN 50 MG TAB PO (13:40)
[2018-12-18] MEDS: ASPIRIN (EC) 81 MG TAB PO (13:40)
[2018-12-18] MEDS: SEVELAMER CARBONATE 800 MG TABLET PO (20:11)
[2018-12-19 06:20] LABS: ADD MAN DIFF? NO
[2018-12-19 06:32] LABS: WHITE BLOOD COUNT 7.2 10^3/ul (4.8-10.8)
[2018-12-19 06:32] LABS: BASOPHILS % 0.3 % (0.0-2.0); EOSINOPHILS # 0.2 10^3/ul (0.0-0.5); EOSINOPHILS % 2.1 % (0.0-7.0); HEMOGLOBIN 9.3 g/dl (14.0-18.0); LYMPHOCYTES # 0.9 10^3/ul (0.8-2.9); LYMPHOCYTES % 11.8 % (15.0-51.0); MEAN CORPUSCULAR HEMOGLOBIN 31.6 pg (29.0-33.0); MEAN CORPUSCULAR HGB CONC 33.2 g/dl (32.0-37.0); MEAN CORPUSCULAR VOLUME 95.2 fl (82.0-101.0); MEAN PLATELET VOLUME 10.2 fl (7.4-10.4); MONOCYTE # 0.5 10^3/ul (0.3-0.9); NEUTROPHIL # 5.7 10^3/ul (1.6-7.5); NEUTROPHILS % 78.5 % (39.0-77.0); PLATELET COUNT 122 10^3/UL (140-415); RED BLOOD COUNT 2.94 10^6/ul (4.70-6.10); RED CELL DISTRIBUTION WIDTH 16.3 % (11.5-14.5)
[2018-12-19 07:01] LABS: ALANINE AMINOTRANSFERASE 31 IU/L (13-69); ALBUMIN 3.4 g/dl (3.3-4.9); ALBUMIN/GLOBULIN RATIO 1.06; ALKALINE PHOSPHATASE 102 IU/L (42-121); ANION GAP 15 (5-13); ASPARTATE AMINO TRANSFERASE 27 IU/L (15-46); BILIRUBIN,INDIRECT 0.9 mg/dl (0-1.1); BILIRUBIN,TOTAL 0.9 mg/dl (0.2-1.3); BLOOD UREA NITROGEN 60 mg/dl (7-20); CALCIUM 9.2 mg/dl (8.4-10.2); CARBON DIOXIDE 25 mmol/L (21-31); CHLORIDE 97 mmol/L (97-110); Estimated GFR 5 mL/min (>60); GLUCOSE 100 mg/dl (70-220); PHOSPHORUS 6.3 mg/dl (2.5-4.9); POTASSIUM 3.6 mmol/L (3.5-5.1); SODIUM 137 mmol/L (135-144); TOTAL PROTEIN 6.6 g/dl (6.1-8.1)
[2018-12-19 07:05] LABS: HEMOGLOBIN A1C 4.7 % (0-5.9)
[2018-12-19] MEDS: ASPIRIN (EC) 81 MG TAB PO (08:22)
[2018-12-19] MEDS: SEVELAMER CARBONATE 800 MG TABLET PO ×3 (08:22→17:24)
[2018-12-19] MEDS: LOSARTAN 50 MG TAB PO ×2 (08:24→15:43)
[2018-12-19] MEDS: HEPARIN 1000 UNITS/ML 10 ML INJ CATHETER (14:56)
[2018-12-19] MEDS ORDERED: HYDROCODONE/APAP (5/325) TAB PO (23:30)
[2018-12-20] MEDS: LOSARTAN 50 MG TAB PO (08:16)
[2018-12-20] MEDS: SEVELAMER CARBONATE 800 MG TABLET PO ×2 (08:25→11:38)
[2018-12-20] MEDS: ASPIRIN (EC) 81 MG TAB PO (08:25)
[2018-12-20] MEDS: IBUPROFEN 400 MG TAB PO (10:06)
[2018-12-20] MEDS: HEPARIN 1000 UNITS/ML 10 ML INJ CATHETER (15:07)
== END 2018-12-20 16:34 | disposition home or self-care (01) | DRG 291 ==
LOC: E/R 21:01 → 6WM 12-18 00:56
PROC: 5A1D70Z Performance of Urinary Filtration, Intermittent, Less than 6 Hours Per Day (ICD-10-PCS; 2018-12-18)
PROC: 5A1D70Z Performance of Urinary Filtration, Intermittent, Less than 6 Hours Per Day (ICD-10-PCS; 2018-12-19)
PROC: 5A1D70Z Performance of Urinary Filtration, Intermittent, Less than 6 Hours Per Day (ICD-10-PCS; principal; 2018-12-20)
DX: I13.2 Hypertensive heart and chronic kidney disease with heart failure and with stage 5 chronic kidney disease, or end stage renal disease (principal); N18.6 End stage renal disease; J96.01 Acute respiratory failure with hypoxia; D61.818 Other pancytopenia; D69.6 Thrombocytopenia, unspecified; I42.9 Cardiomyopathy, unspecified; I50.9 Heart failure, unspecified; Z99.2 Dependence on renal dialysis; D64.9 Anemia, unspecified; I16.0 Hypertensive urgency; Z91.19 Patient's noncompliance with other medical treatment and regimen
CPT/HCPCS: 36415; 71045; 80053; 82803; 83036; 83735; 83880; 84100; 84484; 85025; 85610; 85730; 90935; 93005; 99285-25; G0378

== ENCOUNTER 2018-12-21 19:27 | Emergency (ER) | payer OTHER ==
[2018-12-21] MEDS: TRIMETHOPRIM/SULFAMETHOX (DS) TAB PO (22:45)
[2018-12-21] MEDS: CEPHALEXIN 500 MG CAP PO (22:47)
== END 2018-12-21 23:20 | disposition home or self-care (01) ==
LOC: E/R 19:27
DX: R21 Rash and other nonspecific skin eruption (principal); I13.2 Hypertensive heart and chronic kidney disease with heart failure and with stage 5 chronic kidney disease, or end stage renal disease; N18.6 End stage renal disease; I50.9 Heart failure, unspecified; Z99.2 Dependence on renal dialysis; Z79.82 Long term (current) use of aspirin
CPT/HCPCS: 99283; Z7610